=== PATIENT | female | born 1930 | race Caucasian/White ===

== ENCOUNTER 2016-06-26 19:27 | Emergency (ER) | payer BC ==
[~2016-06-26 19:27] MED LIST: ASCA500 PO; CLCC1250 PO; ENOX30IN4 SQ; ESCI1TAB18 PO; FRRS300 PO; FRS/40 PO; LISI5TAB3 PO; METO50TA7 PO; OXYC-57 PO; VEGETABLE LAXATIVE PO; [UNRECOGNIZED DRUG - CODE] PO
[2016-06-26 19:31] VITALS: TEMP 36.5; Ht 170.2 cm
[2016-06-26] MEDS ORDERED: OXYCODONE HCL IR 5 MG TAB (IMMEDIATE RELEASE) PO STA (22:12)
--- NOTE | 2016-06-26 22:14 | EMERGENCY ROOM VISIT NOTE ---
History Report prepared by Amelia: Sukhdeep Butler Under the Supervision of: Dr. Jamir Queen M.D. First contact with patient: 21:52 Chief Complaint: LEG PAIN,LEG INJURY Stated Complaint: PAIN ON R LEG History of Present Illness The patient is an 86 year old female who presents to the Emergency Room with complaints of recurrent right upper leg pain for the past two weeks, which has been worse over the past 48 hours. The patient does not currently have any pain. She notes that the leg is very painful with movement. The pain is cramping in nature. The patient normally ambulates with a walker, but has been having trouble ambulating secondary to pain recently. The patient had a fall last week but did not sustain any injuries. The patient denies chest pain or shortness of breath. The patient has a catheter in place chronically secondary to back surgery performed by Dr. Lamar years ago s/p fall. The patient's daughter notes that she has chronic venous stasis changes. The patient denies any history of blood clots and is not on any blood thinners. The patient lives alone but is checked on by caregivers. Source of History: patient, family Onset: two weeks Position: leg (right) Quality: cramping Timing: other (recurrent) Modifying Factors (Worsening): movement Associated Symptoms: No SOB, No chest pain Review of Systems See HPI for pertinent positives & negatives. A total of 10 systems reviewed and were otherwise negative. Past Medical & Surgical Surgical Problems: (1) H/O: hysterectomy (2) Hx of cholecystectomy (3) Previous back surgery Old medical records were reviewed. Nurse's notes were reviewed and I agree with. Family History Diabetes mellitus Stroke Social History Smoking Status: Never Smoker Drug Use: none Housing Status: lives alone Occupation Status: retired Current/Historical Medications Scheduled Furosemide (Lasix), 40 MG PO QAM Levothyroxine Sodium (Synthroid), 175 MCG PO QAM Lisinopril (Lisinopril), 5 MG PO QAM Metoprolol Succ (Toprol Xl) (Toprol-Xl), 50 MG PO QPM Senna (Senokot), 2 TAB PO HS Sertraline (Zoloft), 50 MG PO QAM Scheduled PRN Oxycodone Immediate Rel Tab (Roxicodone Ir), 1 TAB PO Q6H PRN for Severe Pain Allergies Coded Allergies: No Known Allergies (Verified , 06/26/16) Physical Exam Vital Signs Date Time Temp Pulse Resp B/P Pulse Ox O2 Delivery O2 Flow Rate FiO2 06/27/16 01:43 70 16 160/86 99 06/27/16 00:02 83 16 158/86 96 Room Air 06/26/16 19:31 36.5 69 20 185/81 96 Room Air Physical Exam General: Non ill appearing older female no acute distress. HEENT: Normal cephalic atraumatic. Pupils are equal round and reactive to light. Sclera Anicteric. Extraocular movements are intact. Oropharynx is pink with moist mucous membranes. No swelling of the mouth lips or tongue. Neck: Supple with a midline trachea. No meningeal signs or stiffness, no JVD or bruits. No Stridor. Chest: Clear to auscultation bilaterally. No wheezes or rhonchi. No increased work of breathing. Heart: regular rate and rhythm. Abdomen: Soft nontender, nondistended without rebound guarding or rigidity. Extremities: No cyanosis clubbing or edema. No calf tenderness or assymetry. Right leg has some pain with flexion of the hip. Spine/Back. Non tender to palpation. No CVA tenderness Skin: Good turgor without rashes. Neurologic exam: Cranial nerves two through 12 are intact. Motor and sensation are intact and symmetrical throughout. : Rivera catheter in place. Medical Decision & Procedures ER Provider Diagnostic Interpretation: Radiology results as stated below per my review and radiologist interpretation: CT PELVIS: There is asymmetric thickening and edema about the right iliopsoas musculature. This is nonspecific. If there has been trauma, it may represent strain. There is high attenuation at the distal portion of the iliopsoas which may represent intramuscular hematoma, or senescent calcification. A minute cortical avulsion is considered less likely, but not entirely ruled out. If there has been no recent trauma, then these findings could be related to underlying infection. Otherwise, no evidence for acute fracture or dislocation. If there is persistent high clinical concern for occult fracture, MRI is the modality of choice. If there is concern for underlying infection of the right iliopsoas musculature, MRI with contrast may be more useful. Concentric wall thickening of the rectosigmoid region, could be due to nonspecific proctitis. Wall thickening of the urinary bladder with surround edema. Suspicious for cystitis or an infiltrative process.Correlate with urinalysis. Radiologist: Carlos Hdz MD US VENOUS RIGHT LOWER EXTREMITY: No definite sonographic evidence for DVT. Limited visualization secondary to body habitus and nonspecific soft tissue edema. Radiologist: Carlos Hdz Laboratory Results 06/26/16 23:17 Red Blood Count 4.09, Mean Corpuscular Volume 93.6, Mean Corpuscular Hemoglobin 32.0, Mean Corpuscular Hemoglobin Concent 34.2, Mean Platelet Volume 9.2, Neutrophils (%) (Auto) 65.2, Lymphocytes (%) (Auto) 23.0, Monocytes (%) (Auto) 9.3, Eosinophils (%) (Auto) 2.0, Basophils (%) (Auto) 0.3, Neutrophils # (Auto) 4.29, Lymphocytes # (Auto) 1.51, Monocytes # (Auto) 0.61, Eosinophils # (Auto) 0.13, Basophils # (Auto) 0.02 06/26/16 23:17 Test 06/26/16 23:17 White Blood Count 6.57 K/uL (4.8-10.8) Red Blood Count 4.09 M/uL (4.2-5.4) Hemoglobin 13.1 g/dL (12.0-16.0) Hematocrit 38.3 % (37-47) Mean Corpuscular Volume 93.6 fL (80-100) Mean Corpuscular Hemoglobin 32.0 pg (25-34) Mean Corpuscular Hemoglobin Concent 34.2 g/dl (32-36) Platelet Count 194 K/uL (130-400) Mean Platelet Volume 9.2 fL (7.4-10.4) Neutrophils (%) (Auto) 65.2 % Lymphocytes (%) (Auto) 23.0 % Monocytes (%) (Auto) 9.3 % Eosinophils (%) (Auto) 2.0 % Basophils (%) (Auto) 0.3 % Neutrophils # (Auto) 4.29 K/uL (1.4-6.5) Lymphocytes # (Auto) 1.51 K/uL (1.2-3.4) Monocytes # (Auto) 0.61 K/uL (0.11-0.59) Eosinophils # (Auto) 0.13 K/uL (0-0.5) Basophils # (Auto) 0.02 K/uL (0-0.2) RDW Standard Deviation 47.7 fL (36.4-46.3) RDW Coefficient of Variation 14.0 % (11.5-14.5) Immature Granulocyte % (Auto) 0.2 % Immature Granulocyte # (Auto) 0.01 K/uL (0.00-0.02) Prothrombin Time 11.0 SECONDS (9.0-12.0) Prothromb Time International Ratio 1.0 (0.9-1.1) Activated Partial Thromboplast Time 25.8 SECONDS (21.0-31.0) Partial Thromboplastin Ratio 1.0 Anion Gap 11.0 mmol/L (3-11) Estimated GFR () 92.2 Estimated GFR (Non- 79.6 BUN/Creatinine Ratio 12.3 (10-20) Calcium Level 8.7 mg/dl (8.5-10.1) Laboratory studies as stated above per my review. Medications Administered Medications (Trade) Dose Ordered Sig/Noé Route Start Time Stop Time Status Last Admin Dose Admin Oxycodone HCl (Roxicodone Immediate Rel Tab) 5 mg NOW STAT PO 06/26/16 22:12 06/26/16 22:15 DC 06/26/16 22:21 5 MG ED Course 2200: Past medical records reviewed. The patient was evaluated in room B10, and a complete history and physical examination were performed. 2212: Oxycodone 5 mg IR PO. 0109: Reassessed the patient. She would like to go home. She verbalized understanding and agreement of the treatment plan. The patient is ready for discharge. 0130: Oxycodone 5 mg IR PO homepack. Medical Decision Differential diagnosis includes DVT, musculoskeletal pain, infection, electrolyte or metabolic abnormality. This patient comes in as described above. she's been having right leg and pelvis pain. She have a minor injury. She has no numbness or weakness. IV access established blood work was obtained. She has no significant electrolyte or metabolic abnormalities. She has nothing to suggest sepsis or infection. she has a indwelling Rivera catheter and has no symptoms to suggest infection. I did a CAT scan of her pelvis and there is no definite fracture. She does likely have a sprain and hematoma along the iliopsoas muscle. She seemed to do well with the OxyIR by mouth here that I gave her she's had this before. She does have a lot of help at home. I told her not to get out of bed in the she has assistance. Use primarily ibuprofen for breakthrough pain she can use OxyIRy 5 mg 1 pill every 6 hours. She was warned that this could make her drowsy and do not take before drinking, driving, working. She should return if : numbness or weakness, change in bowel or bladder function, worsening of symptoms, any new problems concerns. She is happy with plan and discharged home. Impression Primary Impression: Strain of iliopsoas muscle Additional Impressions: Hematoma of muscle Leg pain, right Scribe Attestation The scribe's documentation has been prepared under my direction and personally reviewed by me in its entirety. I confirm that the note above accurately reflects all work, treatment, procedures, and medical decision making performed by me. Departure Information Dispostion Home / Self-Care Prescriptions Oxycodone Immediate Rel Tab (ROXICODONE IR) 5 Mg Tab 1 TAB PO Q6H Y for Severe Pain, #14 TAB Prov: Jamir Queen M.D. 06/27/16 Referrals Christen Hicks C.R.N.P (PCP) Forms HOME CARE DOCUMENTATION FORM, IMPORTANT VISIT INFORMATION Patient Instructions My [facility] Additional Instructions Rest. Be careful and getting up and down. Get up and down with assistance only. Use ibuprofen 400 mg every 6 hours, take with food For more severe pain ,may use OxyIR one pill every 6 hours as needed OxyIR is a narcotic and do not take with any other narcotic or sedating medications. Be careful getting up and down after taking this medicine and getting up and down with assistance only Return if: Increasing pain, worsening of symptoms, any new problems or concerns. Problem Qualifiers
[2016-06-26] MEDS ORDERED: SENN-61 PO (22:57)
[2016-06-26] MEDS ORDERED: LSN5 PO (22:57)
[2016-06-26] MEDS ORDERED: LEVO175T PO (22:57)
[2016-06-26] MEDS ORDERED: SERT50TA PO (22:57)
[2016-06-26 23:32] LABS: BASO % 0.3 %; BASO ABS # 0.02 K/uL (0-0.2); COMPLETE YES; HEMATOCRIT 38.3 % (37-47); IG% 0.2 %; LYMPH ABS # 1.51 K/uL (1.2-3.4); MEAN CELL VOLUME 93.6 fL (80-100); MEAN CORPUSCULAR HGB CONC 34.2 g/dl (32-36); MEAN PLATELET VOLUME 9.2 fL (7.4-10.4); MONO % 9.3 %; NEUT % 65.2 %; PLATELET COUNT 194 K/uL (130-400); RED BLOOD COUNT 4.09 M/uL (4.2-5.4); WHITE BLOOD COUNT 6.57 K/uL (4.8-10.8)
[2016-06-26 23:43] LABS: BLOOD UREA NITROGEN 8 mg/dl (7-18); BUN/CREATININE RATIO 12.3 (10-20); CALCIUM 8.7 mg/dl (8.5-10.1); CARBON DIOXIDE 28 mmol/L (21-32); CHLORIDE 103 mmol/L (98-107); CREATININE 0.67 mg/dl (0.60-1.20); GLUCOSE 97 mg/dl (70-99); SODIUM 142 mmol/L (136-145)
[2016-06-27] MEDS ORDERED: OXYC1TAB3 PO (01:20)
[2016-06-27] MEDS ORDERED: OXYCODONE IR HOME PACK PO ONE (01:30)
[2016-06-27 01:43] VITALS: BP 160/86; PULSE 70; O2SAT 99
--- NOTE | 2016-06-27 06:26 | DIAGNOSTIC IMAGING REPORT ---
CT PELVIS NO IV/ORAL CONT (CT) CT DOSE: 1150.77 mGy.cm CLINICAL HISTORY: Right pelvic and leg pain. Possible fracture. TECHNIQUE: Helical images were acquired in the transverse plane. No intravenous or oral contrast was administered. COMPARISON STUDY: None FINDINGS: There is an indwelling Rivera catheter present. There is air within the bladder likely iatrogenic. There is mild bladder wall thickening and perivesical stranding. The uterus is surgically absent. There is no acute diverticulitis. There is mild rectosigmoid wall thickening which may be secondary to a nondistended segment. There is L3-4, L4-5, and L5-S1 spinal stenosis. There is a calcified right pelvic sidewall lymph nodes. There is no acute diverticulitis. No acute fractures are visualized. There are advanced degenerative changes present within the lower lumbar spine. There is mild enlargement and increased density involving the inferior aspect of the right iliopsoas. The findings are suggestive of a muscle strain/partial tear. There is a small calcific density within the muscle which could represent an age-indeterminate avulsion or myositis ossificans.. IMPRESSION: 1. No acute fractures identified 2. Mild bladder wall thickening with surrounding perivesical stranding. Clinical correlation regards to a urinary tract infection is recommended 3. Mild enlargement and increased density of the right iliopsoas. This is likely secondary to a muscle strain/partial tear. Age-indeterminate avulsion cannot be excluded. Clinical correlation in this regard is advocated Electronically signed by: Burt Galarza M.D. 06/27/2016 6:25 AM Dictated Date/Time: 06/27/2016 6:14 AM
--- NOTE | 2016-06-27 06:48 | DIAGNOSTIC IMAGING REPORT ---
ULTRASOUND RIGHT VENOUS DOPP LOWER EXT UNILAT CLINICAL HISTORY: Right leg pain. COMPARISON STUDY: No previous studies for comparison. FINDINGS: Real-time and color flow Doppler imaging were performed. Flow was seen within the femoral, popliteal and calf veins with no intraluminal thrombus demonstrated. The saphenous vein is patent. There is right lower extremity edema. The study was mildly limited from a technical standpoint due to the patient's body habitus. IMPRESSION: No evidence of right lower extremity DVT. Electronically signed by: Burt Galarza M.D. 06/27/2016 6:46 AM Dictated Date/Time: 06/27/2016 6:45 AM
== END 2016-06-27 01:43 | disposition home or self-care (01) ==
LOC: C.EDB 19:28
DX: S76.811A Strain of other specified muscles, fascia and tendons at thigh level, right thigh, initial encounter (principal); X58.XXXA Exposure to other specified factors, initial encounter; Z79.899 Other long term (current) drug therapy

== ENCOUNTER → 2016-11-06 | Outpatient (CLI) | payer BC ==
[~2016-11-06] MED LIST changes: -ASCA500 PO; -CLCC1250 PO; -ENOX30IN4 SQ; -ESCI1TAB18 PO; -FRRS300 PO; +LEVO175T PO; -LISI5TAB3 PO; +LSN5 PO; -OXYC-57 PO; +OXYC1TAB3 PO; +SENN-61 PO; +SERT50TA PO; -VEGETABLE LAXATIVE PO; -[UNRECOGNIZED DRUG - CODE] PO
[2016-11-06 17:43] LABS: ALT/SGPT 12 U/L (12-78); AST/SGOT 15 U/L (15-37); BLOOD UREA NITROGEN 11 mg/dl (7-18); BUN/CREATININE RATIO 15.7 (10-20); CALCIUM 8.9 mg/dl (8.5-10.1); CARBON DIOXIDE 28 mmol/L (21-32); CHLORIDE 106 mmol/L (98-107); CREATININE 0.67 mg/dl (0.60-1.20); GLUCOSE 91 mg/dl (70-99); SODIUM 139 mmol/L (136-145)
[2016-11-06 17:53] LABS: ALB/GLOB RATIO 0.7 (0.9-2); ALKALINE PHOSPHATASE 92 U/L (45-117)
[2016-11-07 07:36] LABS: ESTIMATED AVERAGE GLUCOSE 105 mg/dl; HA1C FLAG Normal (Normal)
== END | disposition home or self-care (01) ==
LOC: C.LABPVFM 15:11
PROVIDERS: ATTEND Nurse Practitioner
DX: E03.9 Hypothyroidism, unspecified (principal); I10 Essential (primary) hypertension; R73.01 Impaired fasting glucose

== ENCOUNTER → 2017-02-16 | Outpatient (CLI) | payer BC ==
[~2017-02-16] MED LIST changes: -OXYC1TAB3 PO
== END | disposition home or self-care (01) ==
LOC: C.LABSPEC 13:09
PROVIDERS: ATTEND Nurse Practitioner Family
DX: N31.9 Neuromuscular dysfunction of bladder, unspecified (principal); R33.9 Retention of urine, unspecified

== ENCOUNTER → 2017-09-08 | Outpatient (CLI) | payer BC ==
[~2017-09-08] MED LIST changes: +CEPH500C2 PO; +CIPR1TAB11 PO; -METO50TA7 PO; +METO50TA8 PO
== END | disposition home or self-care (01) ==
LOC: C.LABSPEC 12:55
PROVIDERS: ATTEND Emergency Medicine
DX: S81.801D Unspecified open wound, right lower leg, subsequent encounter (principal); X58.XXXD Exposure to other specified factors, subsequent encounter

== ENCOUNTER 2017-09-19 13:45 | Inpatient (IN) | payer BC, OTHER ==
[~2017-09-19] VITALS: Ht 165.1 cm; Wt 100.0 kg
[~2017-09-19 13:45] MED LIST changes: -CEPH500C2 PO; -CIPR1TAB11 PO; -LEVO175T PO; -LSN5 PO; -METO50TA8 PO; -SENN-61 PO; -SERT50TA PO
[2017-09-19] MEDS ORDERED: SODIUM CHLORIDE 0.9% 1000ML 1,000 ML IV STA (14:02)
--- NOTE | 2017-09-19 14:20 | DIAGNOSTIC IMAGING REPORT ---
CHEST ONE VIEW PORTABLE CLINICAL HISTORY: Acute change in mental status. Fever. COMPARISON STUDY: 11/30/2007 FINDINGS: The cardiac and mediastinal contours are normal. There is no evidence of focal pulmonary consolidation. There is no evidence of failure. No pleural effusions are visualized.[ There are postsurgical changes of thoracoabdominal spinal rodding. IMPRESSION: No active disease in the chest. Electronically signed by: Burt Galarza M.D. 09/19/2017 2:19 PM Dictated Date/Time: 09/19/2017 2:18 PM
[2017-09-19 14:36] LABS: BASO % 0.2 %; BASO ABS # 0.01 K/uL (0-0.2); EOS % 0.3 %; EOS ABS # 0.02 K/uL (0-0.5); HEMATOCRIT 32.7 % (37-47); IG# 0.01 K/uL (0.00-0.02); LYMPH % 9.9 %; LYMPH ABS # 0.66 K/uL (1.2-3.4); MEAN CELL VOLUME 96.2 fL (80-100); MEAN CORPUSCULAR HEMOGLOBIN 32.4 pg (25-34); MEAN CORPUSCULAR HGB CONC 33.6 g/dl (32-36); MEAN PLATELET VOLUME 8.4 fL (7.4-10.4); MONO % 9.3 %; MONO ABS # 0.62 K/uL (0.11-0.59); NEUT % 80.1 %; NEUT ABS # 5.33 K/uL (1.4-6.5); PLATELET COUNT 124 K/uL (130-400); RED CELL DISTRIBUTION WIDTH SD 49.6 fL (36.4-46.3); WHITE BLOOD COUNT 6.65 K/uL (4.8-10.8)
[2017-09-19 14:49] LABS: PTT PATIENT 29.6 SECONDS (21.0-31.0)
[2017-09-19 15:01] LABS: ALBUMIN 2.6 gm/dl (3.4-5.0); ALKALINE PHOSPHATASE 84 U/L (45-117); ALT/SGPT 12 U/L (12-78); AST/SGOT 17 U/L (15-37); BLOOD UREA NITROGEN 15 mg/dl (7-18); CALCIUM 8.2 mg/dl (8.5-10.1); CARBON DIOXIDE 28 mmol/L (21-32); CREATININE 0.92 mg/dl (0.60-1.20); GLUCOSE 107 mg/dl (70-99); LIPASE 69 U/L (73-393); POTASSIUM 3.9 mmol/L (3.5-5.1); SODIUM 136 mmol/L (136-145); TOTAL PROTEIN 6.6 gm/dl (6.4-8.2)
--- NOTE | 2017-09-19 15:12 | DIAGNOSTIC IMAGING REPORT ---
LUMBAR SPINE 3 VIEWS HISTORY: weak legs COMPARISON: None. FINDINGS: There is no fracture. Mild levoscoliosis. There is posterior decompression and fusion from T11 through L3 with pedicle screws and rods. The hardware appears intact. 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 Severe disc space narrowing at L3-L4, L4-5, and L5-S1. The L3-L4 and L4-L5 disc spaces appear to be partially fused. No subluxation. The bones are osteopenic. Prior cholecystectomy. Moderate facet osteoarthritis within the bilateral sacroiliac joints. IMPRESSION: 1. No acute fractures within the lumbar spine. 2. Advanced degenerative changes within the lower lumbar spine described above. 3. T11-L3 posterior decompression and fusion. The hardware is intact. Electronically signed by: Nixon Regan M.D. 09/19/2017 3:11 PM Dictated Date/Time: 09/19/2017 3:08 PM
[2017-09-19] MEDS ORDERED: DTR/5 PO (15:31)
[2017-09-19] MEDS ORDERED: MELO7.5T6 PO (15:31)
[2017-09-19] MEDS ORDERED: CEFTRIAXONE SOD INJ 1 GM ADDVIAL IV STA (15:38)
[2017-09-19] MEDS ORDERED: CEFEPIME IV 1,000 MG in DEXTROSE 5% 100ML 100 ML IV STA (15:40)
[2017-09-19] MEDS ORDERED: ACETAMINOPHEN 325 MG TAB PO PRN (16:15)
[2017-09-19] MEDS ORDERED: ONDANSETRON INJ 2 MG/ML 2 ML VIAL IV PRN (16:15)
[2017-09-19] MEDS ORDERED: ALUMINUM/MAGNESIUM/SIMETH (MAALOX MAX) 30 ML UDC PO PRN (16:15)
[2017-09-19] MEDS ORDERED: ZOLPIDEM TARTRATE 5 MG TAB PO PRN (16:15)
[2017-09-19] MEDS ORDERED: POLYETHYLENE (MIRALAX) 17 GM PACK PO PRN (16:15)
[2017-09-19] MEDS ORDERED: MAGNESIUM HYDROXIDE SUSP 30 ML UDC PO PRN (16:15)
[2017-09-19 16:36] VITALS: BMI 36.7
--- NOTE | 2017-09-19 17:27 | Progress Note ---
Progress Note Date of Service September 19, 2017. Progress Note PA Physician Supervision Note: I interviewed and examined the patient. Discussed with Victor Manuel Escobar PAC and agree with findings and plan as documented in the note. Any exceptions or clarifications are listed here: None This patient is brought in by her family after having difficulty getting around. She typically would walk around with a walker. She does have a chronic indwelling Rivera catheter which was recently changed. Although she has had urinary tract infections in the past that caused similar symptoms she has had no dysuria which is usually a symptom of it. She is chronically bothered by hemorrhoids and she has an open wound on her right lower leg which being his is being attended to by the wound care center. She is changes of chronic venous stasis of bilateral lower extremities Vital signs and laboratories are stable with exception of an abnormal urinalysis she has had cultures taken in the ER was given Rocephin Physical exam she is awake alert appropriate her cardiac exam is regular her lungs are clear her throat is without evidence of pharyngitis her abdomen is normoactive bowel sounds soft nontender including no CVA angle tenderness or suprapubic tenderness her lower extremities have dusky venous stasis changes there is a $0.50 size opening of the right lower extremity and anterior part of the distal third which is beefy erythematous and does not look actively infected neurologically she is awake and appropriate she is however generally globally weak Patient is here with metabolic encephalopathy with weakness with concern for urinary tract infection present on admission Patient will be brought and given intravenous levofloxacin and have physical therapy occupational therapy consults wound care will continue to see the patient There is some concern that the patient's had a tremor which interferes with her activities of daily living if this continues to be an issue perhaps neurology consultation could be undertaken. The family wishes for rehabilitation evaluation for subacute rehab or acute rehab whenever she qualifies for Documented By: Virgil Lambert
--- NOTE | 2017-09-19 17:59 | EMERGENCY ROOM VISIT NOTE ---
History Report prepared by Amelia: Isabell Ram Under the Supervision of: Dr. Paul Cortez D.O. First contact with patient: 13:52 Chief Complaint: FEVER Stated Complaint: FEVER,HAVING TROUBLE SITTING UP History of Present Illness The patient is a 87 year old female who presents to the Emergency Room with complaints of worsening weakness for the past 2 days. She is accompanied by several family members. Her family reports she has been increasingly weak and has had difficulty sitting up recently, which is unlike her. She normally ambulates with a walker, and her family last saw her use the walker to ambulate last weekend. The patient has an indwelling Rivera catheter that was last changed about 4 days ago. She has been running a low grade fever of 99 degrees for the past day. Pt denies headache, change in vision, chest pain, shortness of breath, back pain, nausea, vomiting, diarrhea, pain with urination, and melena. 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 A total of 10 systems reviewed and were otherwise negative. Past Medical & Surgical Medical Problems: (1) Generalized weakness (2) UTI (urinary tract infection) Surgical Problems: (1) H/O: hysterectomy (2) Hx of cholecystectomy (3) Previous back surgery Family History Diabetes mellitus Stroke Social History Smoking Status: Never Smoker Alcohol Use: none Drug Use: none Marital Status: Housing Status: lives alone Occupation Status: retired Current/Historical Medications Scheduled Furosemide (Lasix), 40 MG PO QAM Levothyroxine Sodium (Synthroid), 175 MCG PO QAM Lisinopril (Lisinopril), 5 MG PO QAM Metoprolol Succ (Toprol Xl) (Toprol-Xl), 50 MG PO QPM Senna (Senokot), 17.2 MG PO HS Sertraline (Zoloft), 50 MG PO QAM Scheduled PRN Meloxicam (Mobic), 7.5 MG PO DAILY PRN for Pain Oxybutynin Chloride (Ditropan), 5 MG PO TID PRN for Bladder Spasm Allergies Coded Allergies: No Known Allergies (Verified , 2/24/17) Physical Exam Vital Signs Date Time Temp Pulse Resp B/P (MAP) Pulse Ox O2 Delivery O2 Flow Rate FiO2 09/19/17 16:36 Room Air 09/19/17 16:30 66 20 132/58 98 Room Air 09/19/17 15:20 68 20 163/66 98 Room Air 09/19/17 13:50 36.8 77 20 106/56 96 Room Air Physical Exam GENERAL: Sitting up in bed, alert, unable to stand or transfer out of chair, well nourished, no distress, non-toxic EYE EXAM: normal conjunctiva. PERRL and EOM's intact. OROPHARYNX: no exudate, no erythema, lips, buccal mucosa, and tongue normal and mucous membranes are moist NECK: supple, no nuchal rigidity, no adenopathy, non-tender LUNGS: Course breath sounds bilaterally. Normal chest wall mechanics HEART: no murmurs, S1 normal and S2 normal ABDOMEN: abdomen soft, non-tender, normo-active bowel sounds, no masses, no rebound or guarding. BACK: Back is symmetrical on inspection and there is no deformity, no midline tenderness, no CVA tenderness. SKIN: no rashes and no bruising, 3 cm circular erythematous lesion to the right mid ford, no discharge, fluctuance or purulence. UPPER EXTREMITIES: upper extremities are grossly normal. LOWER EXTREMITIES: No pitting edema. Minimal bilateral flexion of the hips, unable to lift against gravity, plantar, dorsiflexion and EHL 5/5, DP 2/4, gross sensation intact. NEURO EXAM: Patient is awake, alert and oriented to person, place, year but not month. Cranial nerves II-XII intact, normal speech. Medical Decision & Procedures ER Provider Diagnostic Interpretation: Radiology results as stated below per my review and the radiologist's interpretation: LUMBAR SPINE 3 VIEWS HISTORY: weak legs COMPARISON: None. FINDINGS: There is no fracture. Mild levoscoliosis. There is posterior decompression and fusion from T11 through L3 with pedicle screws and rods. The hardware appears intact. 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 Severe disc space narrowing at L3-L4, L4-5, and L5-S1. The L3-L4 and L4-L5 disc spaces appear to be partially fused. No subluxation. The bones are osteopenic. Prior cholecystectomy. Moderate facet osteoarthritis within the bilateral sacroiliac joints. IMPRESSION: 1. No acute fractures within the lumbar spine. 2. Advanced degenerative changes within the lower lumbar spine described above. 3. T11-L3 posterior decompression and fusion. The hardware is intact. Electronically signed by: Nixon Regan M.D. 09/19/2017 3:11 PM CHEST ONE VIEW PORTABLE CLINICAL HISTORY: Acute change in mental status. Fever. COMPARISON STUDY: 11/30/2007 FINDINGS: The cardiac and mediastinal contours are normal. There is no evidence of focal pulmonary consolidation. There is no evidence of failure. No pleural effusions are visualized. There are postsurgical changes of thoracoabdominal spinal rodding. IMPRESSION: No active disease in the chest. Electronically signed by: Burt Galarza M.D. 09/19/2017 2:19 PM Laboratory Results 09/19/17 14:30 Red Blood Count 3.40, Mean Corpuscular Volume 96.2, Mean Corpuscular Hemoglobin 32.4, Mean Corpuscular Hemoglobin Concent 33.6, Mean Platelet Volume 8.4, Neutrophils (%) (Auto) 80.1, Lymphocytes (%) (Auto) 9.9, Monocytes (%) (Auto) 9.3, Eosinophils (%) (Auto) 0.3, Basophils (%) (Auto) 0.2, Neutrophils # (Auto) 5.33, Lymphocytes # (Auto) 0.66, Monocytes # (Auto) 0.62, Eosinophils # (Auto) 0.02, Basophils # (Auto) 0.01 09/19/17 14:30 Test 09/19/17 14:00 09/19/17 14:30 Urine Color YELLOW Urine Appearance CLEAR (CLEAR) Urine pH 7.5 (4.5-7.5) Urine Specific [place] 1.008 (1.000-1.030) Urine Protein NEG (NEG) Urine Glucose (UA) NEG (NEG) Urine Ketones NEG (NEG) Urine Occult Blood NEG (NEG) Urine Nitrite NEG (NEG) Urine Bilirubin NEG (NEG) Urine Urobilinogen NEG (NEG) Urine Leukocyte Esterase MODERATE (NEG) Urine WBC (Auto) 5-10 /hpf (0-5) Urine RBC (Auto) 0-4 /hpf (0-4) Urine Hyaline Casts (Auto) 1-5 /lpf (0-5) Urine Epithelial Cells (Auto) >30 /lpf (0-5) Urine Bacteria (Auto) 1+ (NEG) Urine Renal Epithelial Cells 5-10 /lpf (0-5) White Blood Count 6.65 K/uL (4.8-10.8) Red Blood Count 3.40 M/uL (4.2-5.4) Hemoglobin 11.0 g/dL (12.0-16.0) Hematocrit 32.7 % (37-47) Mean Corpuscular Volume 96.2 fL (80-100) Mean Corpuscular Hemoglobin 32.4 pg (25-34) Mean Corpuscular Hemoglobin Concent 33.6 g/dl (32-36) Platelet Count 124 K/uL (130-400) Mean Platelet Volume 8.4 fL (7.4-10.4) Neutrophils (%) (Auto) 80.1 % Lymphocytes (%) (Auto) 9.9 % Monocytes (%) (Auto) 9.3 % Eosinophils (%) (Auto) 0.3 % Basophils (%) (Auto) 0.2 % Neutrophils # (Auto) 5.33 K/uL (1.4-6.5) Lymphocytes # (Auto) 0.66 K/uL (1.2-3.4) Monocytes # (Auto) 0.62 K/uL (0.11-0.59) Eosinophils # (Auto) 0.02 K/uL (0-0.5) Basophils # (Auto) 0.01 K/uL (0-0.2) RDW Standard Deviation 49.6 fL (36.4-46.3) RDW Coefficient of Variation 14.0 % (11.5-14.5) Immature Granulocyte % (Auto) 0.2 % Immature Granulocyte # (Auto) 0.01 K/uL (0.00-0.02) Prothrombin Time 10.3 SECONDS (9.0-12.0) Prothromb Time International Ratio 1.0 (0.9-1.1) Activated Partial Thromboplast Time 29.6 SECONDS (21.0-31.0) Partial Thromboplastin Ratio 1.1 Anion Gap 5.0 mmol/L (3-11) Est Creatinine Clear Calc Drug Dose 50.5 ml/min Estimated GFR () 64.9 Estimated GFR (Non- 56.0 BUN/Creatinine Ratio 16.7 (10-20) Lactic Acid Level 0.9 mmol/L (0.4-2.0) Calcium Level 8.2 mg/dl (8.5-10.1) Magnesium Level 2.0 mg/dl (1.8-2.4) Total Bilirubin 0.8 mg/dl (0.2-1) Direct Bilirubin 0.2 mg/dl (0-0.2) Aspartate Amino Transf (AST/SGOT) 17 U/L (15-37) Alanine Aminotransferase (ALT/SGPT) 12 U/L (12-78) Alkaline Phosphatase 84 U/L (45-117) Troponin I < 0.015 ng/ml (0-0.045) Total Protein 6.6 gm/dl (6.4-8.2) Albumin 2.6 gm/dl (3.4-5.0) Lipase 69 U/L (73-393) Laboratory results per my review. Medications Administered Medications (Trade) Dose Ordered Sig/Noé Route Start Time Stop Time Status Last Admin Dose Admin Sodium Chloride 1,000 ml @ 999 mls/hr Q1H1M STAT IV 09/19/17 14:02 09/19/17 15:02 DC 09/19/17 14:02 999 MLS/HR Cefepime HCl 1000 mg/Dextrose 111 ml @ 200 mls/hr NOW STAT IV 09/19/17 15:40 09/19/17 16:13 DC 09/19/17 16:04 200 MLS/HR ECG Per My Interpretation Indication: weakness Rate (beats per minute): 81 Rhythm: sinus rhythm Findings: 1st degree AV block, Q waves (Inferior), RBBB ED Course ED COURSE: Vital signs were reviewed and showed normal vital signs. The patients medical record was reviewed The above diagnostic studies were performed and reviewed. ED treatments and interventions as stated above. 1354: The patient was evaluated in room B4. A complete history and physical examination was performed. 1402: NSS 1000 ml @ 999 mls/hr IV. 1538: Rocephin 1 gm IV. 1540: Cefepime HCl 1000 mg/Dextrose 111 ml @ 200 mls/hr IV. 1542: I discussed the patients case with Victor Manuel Escobar PA-C, [facility] Hospitalist. The patient will be further evaluated. 1550: Upon reevaluation, the patient is resting comfortably. I discussed my findings with the patient and she understands and agrees with the treatment plan. Based on the patients age, coexisting illnesses, exam and lab findings the decision to treat as an inpatient was made. The patient remained stable while under my care. The patient will be evaluated for further management. Medical Decision Differential Diagnosis includes but is not limited to dehydration, stroke, anemia, hypoglycemia, hyponatremia, hypernatremia, urinary tract infection, pneumonia, bronchitis, sepsis, gastroenteritis, additional abdominal pathology, metabolic abnormalities and infections. Patient is an 87-year-old female that presents to ER for weakness. She normally ambulance with a walker. Over the past 2 days she has been unable to get up or move around as she has felt so weak and run down. She has no other real medical complaints. She denies any back pain. Chronic Rivera since early 1999. CBC shows no significant leukocytosis or anemia. BMP along with LFTs, lactic acid, bilirubin and troponin were negative. Lipase is normal. UA with lites, leuks and bacteria. There were epithelial cells present as she has a chronic indwelling Rivera. Patient was covered with cefepime as she does have multiple previous urine cultures I favor this was reasonable start as a covered her Pseudomonas and E. coli previously. She has good plantar and dorsiflexion. Sensations intact. I do not believe that she has cauda equina and she has no back pain at this time. Patient was bedside and given a dose of IV antibiotics. She was also given fluids. Family was updated at bedside and they were unable to take her home and consequently she was admitted to internal medicine for further workup. Medication Reconcilliation Current Medication List: was personally reviewed by me Blood Pressure Screening Patient's blood pressure: Elevated blood pressure Blood pressure disposition: Referred to PCP (The patients blood pressure will be further managed by the inpatient hospital medicine team) Consults Time Called: 1539 Consulting Physician: Victor Manuel Escobar PA-C, [facility] Hospitalist Returned Call: [phone] I discussed the patients case with Victor Manuel Escobar PA-C, [facility] Hospitalist. The patient will be further evaluated. Impression Primary Impression: UTI (urinary tract infection) Additional Impression: Weakness Scribe Attestation The scribe's documentation has been prepared under my direction and personally reviewed by me in its entirety. I confirm that the note above accurately reflects all work, treatment, procedures, and medical decision making performed by me. Departure Information Dispostion Being Evaluated By Hospitalist Referrals No Doctor, Assigned (PCP) Patient Instructions My [facility] Problem Qualifiers Primary Impression: UTI (urinary tract infection) Urinary tract infection type: acute cystitis Hematuria presence: with hematuria Qualified Codes: N30.01 - Acute cystitis with hematuria
[2017-09-19 18:14] VITALS: BP_SYST 153; BP_SYST 176; BP_DIAS 79; PULSE 74; TEMP 36.8; O2SAT 99
[2017-09-19] MEDS ORDERED: HYDROCORTISONE HC 2.5% CRM 30GM TUBE EXT PRN (18:15)
[2017-09-19] MEDS ORDERED: METO50TA8 PO (19:35)
[2017-09-19] MEDS: LEVOFLOXACIN / D5W 500 MG in PREMIXED IN D5W 100 ML IV SCH (20:15)
[2017-09-19] MEDS: OXYBUTYNIN CHLORIDE 5 MG TAB PO SCH (22:03)
[2017-09-19] MEDS: ENOXAPARIN 40 MG/0.4 ML SYR SQ SCH (22:04)
--- NOTE | 2017-09-19 22:14 | HISTORY & PHYSICAL EXAMINATION ---
DATE OF ADMISSION: 09/19/2017 ADMITTING DIAGNOSES: 1. Generalized weakness, ambulatory dysfunction. 2. Urinary tract infection in a patient with chronic indwelling catheter. HISTORY OF PRESENT ILLNESS: Mrs. Hernandez is an 87-year-old white female with a history of longstanding hypertension, hypothyroidism, nonhealing right leg wound (followed by the wound clinic), depression, lumbar spinal stenosis status post lumbar decompression and fusion, osteoarthritis, neurogenic bladder, chronic lymphedema, chronic venous insufficiency, and a history of skin cancer, who was brought to the Emergency Room today by her family due to progressive weakness, fear for falling, and feeling poorly through the weekend. Up until last week, patient was able to help herself stand up from a chair, ambulate with a walker, with enough strength to assist her family in moving to do what she needed to do. Unfortunately, over the past 2-3 days, the patient has become progressively weaker, was unable to stand up on her own, had difficulty with transferring from a wheelchair into a chair, and she has come close to falling several times. The patient does admit she had fear of falling because she feels so weak at this point. In the ER, she was noted to have urine bacteria, urine white blood cells, and urine leukocyte esterase, and she is mildly anemic. Her blood pressure is elevated. The patient thinks that she may have had a fever, but she is not certain of that. She denies any focal weakness, it is just that both legs are more weak than they normally would be. The patient denies any chest pain, heaviness, tightness, pressure, or discomfort. She denies any shortness of breath, cough, sputum production, or any dyspnea on exertion. She denies any orthopnea or PND. She denies any palpitations, syncope, or near syncope. She denies any nausea, vomiting, or diarrhea. She has not had any melena or black looking stools. No hematochezia. She denies any back or flank pain. MEDICATIONS: 1. Meloxicam 7.5 mg daily. 2. Oxybutynin chloride 5 mg 1 tablet 3 times daily as needed for bladder spasms. 3. Sertraline 50 mg daily. 4. Lisinopril 5 mg daily. 5. Toprol-XL 50 mg daily. 6. Lasix 40 mg daily for edema. 7. Levothyroxine 175 mcg daily. 8. Ibuprofen 200 mg 2 tablets daily as needed. 9. Senokot 8.6 mg as needed. ALLERGIES: NKDA. PAST MEDICAL HISTORY: 1. Allergic rhinitis. 2. Osteoarthritis. 3. Lumbar spinal stenosis status post lumbar decompression and fusion complicated by neurogenic bladder, bilateral leg weakness. 4. History of bladder spasms. 5. Hemorrhoids. 6. Longstanding hypertension. 7. Depression. 8. History of frequent falls. 9. Nonhealing ulcer, right lower extremity. 10. Chronic lymphedema. 11. Hypothyroidism. 12. Impaired fasting glucose. 13. Morbid obesity. 14. History of sebaceous cyst. 15. Unsteady gait. 16. History of urinary retention. 17. Chronic venous insufficiency. 18. History of ankle fracture status post ORIF. 19. History of laparoscopic cholecystectomy. 20. Status post hysterectomy. 21. History of prior UTIs. SOCIAL HISTORY: The patient is a lifelong nonsmoker. She is . Lives with her family, several who are in attendance today. Please note that the patient has had prior stays at [facility], and she has also had previous stays at [facility] for rehabilitation purposes. FAMILY HISTORY: Significant for diabetes mellitus, hypertension, and endometrial cancer. PHYSICAL EXAMINATION: VITAL SIGNS: Temperature is 36.8 degrees Celsius, pulse 74 and regular, respiratory rate is 17 and unlabored, blood pressure is 163/66. SpO2 is 99% on room air. GENERAL: Chronically ill-appearing white female in no acute distress. HEENT: Head is atraumatic, normocephalic. EOMs intact. Sclerae are anicteric. Face is symmetric. No perioral cyanosis. Mucous membranes are moist. NECK: Without JVD. Carotid upstrokes +2 bilaterally. CHEST AND LUNGS: Clear to auscultation throughout all lung mckeon. No wheezes, rales, or rhonchi. CARDIOVASCULAR: S1 and S2 are regular without obvious murmur, gallop, or rub. ABDOMINAL EXAM: Bowel sounds present. No masses, organomegaly, or tenderness. CVAs are nontender. EXTREMITIES: Normal radial pulses bilaterally. Bilateral lower extremity edema, which is mostly nonpitting, 3 cm circular erythematous lesion in the right mid ford, dressing intact afterwards. Diminished posterior tibial and dorsalis pedis pulses bilaterally. NEUROLOGIC: The patient is awake, alert and oriented. Answers questions appropriately. Speech is clear. Normal movement in bilateral upper extremities. Diminished strength in bilateral hip flexors, quadriceps, plantarflexion and dorsiflexion. Sensation is grossly intact to light touch. Urinalysis as described above. Urine C and S is pending. LABORATORIES: White blood cell count 6.65. Hemoglobin 11.0 g/dL, hematocrit 32.7%, platelet count is 124,000. Sodium 136 mmol/L, potassium 3.9 mmol/L. BUN is 15 mg/dL, creatinine 0.92 mg/dL. Random glucose 107 mg/dL. Lactic acid level is normal at 0.9. Serum magnesium level 2.0. Lipase is low at 69 units per liter. Troponin I level is immeasurable at less than 0.015 ng/mL. Total bilirubin, direct bilirubin, ALT, AST, and alkaline phosphatase levels are all within normal limits. Lumbar spine x-ray reveals no acute fractures, but advanced degenerative changes within the lower lumbar spine, evidence of prior posterior decompression and fusion from T11 through L3. Hardware is intact. Chest x-ray shows no acute cardiopulmonary processes. ASSESSMENT: 1. Urinary tract infection in a patient with chronic indwelling catheter. 2. Generalized weakness, ambulatory dysfunction, and high risk for falls. 3. Hypertension. 4. History of lumbar spinal stenosis status post decompression and fusion. 5. Neurogenic bladder. 6. Hypothyroidism. 7. Diagnosis, as mentioned above. PLAN: 1. Admit to medical floor to Dr. Lambert's service. 2. Begin empiric levofloxacin 500 mg IV daily. 3. Consult occupational therapy and physical therapy. The patient will most likely need placement in a rehabilitation facility versus correction facility at the time of discharge. 4. Continue usual outpatient medications including Toprol-XL, lisinopril, furosemide, levothyroxine, Zoloft, oxybutynin. 5. Hold meloxicam and ibuprofen for the time being. 6. Continue dressings to right leg wound. She will continue to follow up with the wound clinic regarding this. 7. Begin now Lovenox for deep venous thrombosis prophylaxis. 8. We will continue to closely follow while hospitalized. TAMIKA
[2017-09-19] MEDS ORDERED: LEVO175T PO (22:57)
[2017-09-19] MEDS ORDERED: LSN5 PO (22:57)
[2017-09-19] MEDS ORDERED: SENN-61 PO (22:57)
[2017-09-19] MEDS ORDERED: SERT50TA PO (22:57)
[2017-09-19 23:30] VITALS: BP 168/71; PULSE 77; TEMP 37.8; O2SAT 98
[2017-09-20] MEDS: LEVOTHYROXINE 175 MCG TAB PO SCH (06:05)
[2017-09-20 07:15] VITALS: BP 176/91; PULSE 67; TEMP 36.9; O2SAT 100
[2017-09-20 07:33] VITALS: BP 113/62; PULSE 77; TEMP 37; O2SAT 96
[2017-09-20 08:00] VITALS: O2SAT 96
[2017-09-20] MEDS: METOPROLOL SUCC 50MG EXT REL TAB PO SCH (08:15)
[2017-09-20] MEDS: LISINOPRIL 5 MG TAB PO SCH (08:15)
[2017-09-20] MEDS: SERTRALINE HCL 50 MG TAB PO SCH (08:15)
[2017-09-20] MEDS: FUROSEMIDE 40 MG TAB PO SCH (08:15)
[2017-09-20] MEDS: OXYBUTYNIN CHLORIDE 5 MG TAB PO SCH ×2 (08:15→20:01)
--- NOTE | 2017-09-20 12:04 | Clinical Documentation Query ---
CLINICAL DOCUMENTATION QUERY 87 yo female admitted with UTI and metabolic encephalopathy. Patient has a chronic indwelling mathews catheter. In your clinical opinion is this patient being managed for: ( x ) Indwelling mathews catheter associated UTI, present on admission ( ) Not Agree ( ) Other explanation of clinical findings (No explanation is considered a No Response) ( ) Unable to determine ( ) Need to Discuss (Phone CDS or qliq) (No discussion is considered a No Response) The medical record reflects the following clinical findings, treatment, and risk factors. Clinical Indicators: As above Treatment: Rocephin IV, Maxipime IV Risk Factors: Age, female, chronic mathews catheter, weakness, ambulatory dysfunction Please clarify and document your clinical opinion in the progress notes and discharge summary. Terms such as "probable", "suspected", "likely", "questionable", "possible", or "still to be ruled out" are acceptable. IF IN AGREEMENT, YOU MUST DOCUMENT ABOVE DIAGNOSTIC STATEMENT IN DAILY PROGRESS NOTES AND DISCHARGE SUMMARY. This document is not part of the patient's record. Thank You, Sherley Nixon RN [phone]
[2017-09-20 13:06] VITALS: Ht 165.1 cm; Wt 100.0 kg
[2017-09-20 15:35] VITALS: BP 112/68; PULSE 70; TEMP 36.8; O2SAT 93
[2017-09-20] MEDS: LEVOFLOXACIN / D5W 500 MG in PREMIXED IN D5W 100 ML IV SCH (19:58)
[2017-09-20] MEDS: ENOXAPARIN 40 MG/0.4 ML SYR SQ SCH (20:02)
--- NOTE | 2017-09-20 21:18 | Progress Note ---
Subjective Date of Service: September 20, 2017. Subjective Pt evaluation today including: conversation w/ patient Patient reports feeling better. She currently has no new complaints. Problem List Medical Problems: (1) Hematoma of muscle Status: Acute (2) Strain of iliopsoas muscle Status: Acute (3) Weakness Status: Acute Review of Systems Constitutional: No fever, No chills Eyes: No worsening of vision ENT: No hearing loss Respiratory: No cough Abdomen: No pain Neurologic: No paralysis Psychiatric: No depression symptoms Endo: + fatigue Skin: No rash All Other Systems: Reviewed and Negative Medications Current Inpatient Medications Medications (Trade) Dose Ordered Sig/Noé Route Start Time Stop Time Status Last Admin Dose Admin Enoxaparin Sodium (Lovenox Inj) 40 mg Q24H SQ 09/19/17 21:00 10/19/17 20:59 09/20/17 20:02 40 MG Acetaminophen (Tylenol Tab) 650 mg Q4H PRN PO 09/19/17 16:15 10/19/17 16:14 Al Hydrox/Mg Hydrox/Simethicone (Maalox Max Susp) 15 ml Q4H PRN PO 09/19/17 16:15 10/19/17 16:14 Magnesium Hydroxide (Milk Of Magnesia Susp) 30 ml Q6H PRN PO 09/19/17 16:15 10/19/17 16:14 Polyethylene (Miralax Powder Packet) 17 gm DAILY PRN PO 09/19/17 16:15 10/19/17 16:14 Ondansetron HCl (Zofran Inj) 4 mg Q6H PRN IV 09/19/17 16:15 10/19/17 16:14 Zolpidem Tartrate (Ambien Tab) 5 mg HSZ PRN PO 09/19/17 16:15 10/19/17 16:14 Oxybutynin Chloride (Ditropan Tab) 5 mg BID PO 09/19/17 20:00 10/19/17 20:59 09/20/17 20:01 5 MG Sertraline HCl (Zoloft Tab) 50 mg QAM PO 09/20/17 08:00 10/20/17 08:59 09/20/17 08:15 50 MG Lisinopril (Zestril Tab) 5 mg QAM PO 09/20/17 08:00 10/20/17 08:59 09/20/17 08:15 5 MG Metoprolol Succinate (Toprol Xl Tab) 50 mg QAM PO 09/20/17 08:00 10/20/17 08:59 09/20/17 08:15 50 MG Furosemide (Lasix Tab) 40 mg QAM PO 09/20/17 08:00 10/20/17 08:59 09/20/17 08:15 40 MG Levothyroxine Sodium (Synthroid Tab) 175 mcg DAILYBB PO 09/20/17 06:30 10/20/17 06:59 09/20/17 06:05 175 MCG Levofloxacin 500 mg/Prmx 100 ml @ 100 mls/hr Q24H IV 09/19/17 19:00 09/29/17 18:59 09/20/17 19:58 100 MLS/HR Hydrocortisone (Proctozone Hc 2.5% Crm) 1 appln Q4H PRN EXT 09/19/17 18:15 10/19/17 18:14 Objective Vital Signs Date Time Temp Pulse Resp B/P (MAP) Pulse Ox O2 Delivery O2 Flow Rate FiO2 09/20/17 16:00 Room Air 09/20/17 15:35 36.8 70 18 112/68 (83) 93 Room Air 09/20/17 08:00 96 Room Air 09/20/17 07:33 37.0 77 22 113/62 (79) 96 09/20/17 00:00 Room Air 09/19/17 23:30 37.8 77 18 168/71 (103) 98 Room Air Physical Exam General Appearance: WD/WN, no apparent distress ENT: normal ENT inspection Neck: supple, no adenopathy Respiratory/Chest: chest non-tender, lungs clear, normal breath sounds Cardiovascular: regular rate, rhythm, no JVD Abdomen: normal bowel sounds, non tender, soft Extremities: normal range of motion, non-tender, + pertinent finding ( her lower extremities have dusky venous stasis changes there is a $0.50 size opening of the right lower extremity and anterior part of the distal third which is beefy erythematous and does not look actively infected) Neurologic/Psychiatric: alert Skin: normal color Lymphatic: no adenopathy Assessment and Plan ASSESSMENT: 1. Indwelling mathews catheter associated UTI, present on admission 2. Generalized weakness, ambulatory dysfunction, and high risk for falls. 3. Hypertension. 4. History of lumbar spinal stenosis status post decompression and fusion. 5. Neurogenic bladder. 6. Hypothyroidism. 7. Diagnosis, as mentioned above. PLAN: 1. Admit to medical floor to Dr. Lambert's service. 2. Begin empiric levofloxacin 500 mg IV daily. Awaiting urine cultures. Gram negative bacilli 3. Consult occupational therapy and physical therapy. will need SNF for discharge for rehab 4. Continue usual outpatient medications including Toprol-XL, lisinopril, furosemide, levothyroxine, Zoloft, oxybutynin. 5. Hold meloxicam and ibuprofen for the time being. 6. Continue dressings to right leg wound. She will continue to follow up with the wound clinic regarding this. 7. Begin now Lovenox for deep venous thrombosis prophylaxis. 8. We will continue to closely follow while hospitalized Spent 37 minutes in the management of this case: this also included interviewing , chart review, and examination of patient.
[2017-09-20 23:43] VITALS: BP 153/78; PULSE 73; TEMP 36.8; O2SAT 99
[2017-09-21] MEDS: LEVOTHYROXINE 175 MCG TAB PO SCH (06:01)
[2017-09-21 07:14] VITALS: BP 144/77; PULSE 67; TEMP 37; O2SAT 97
[2017-09-21 08:00] VITALS: O2SAT 97
[2017-09-21] MEDS: OXYBUTYNIN CHLORIDE 5 MG TAB PO SCH (08:53)
[2017-09-21] MEDS: FUROSEMIDE 40 MG TAB PO SCH (08:53)
[2017-09-21] MEDS: LISINOPRIL 5 MG TAB PO SCH (08:53)
[2017-09-21] MEDS: SERTRALINE HCL 50 MG TAB PO SCH (08:53)
[2017-09-21] MEDS: METOPROLOL SUCC 50MG EXT REL TAB PO SCH (08:53)
[2017-09-21 15:31] VITALS: BP 111/54; PULSE 68; TEMP 37.1; O2SAT 99
[2017-09-21] MEDS ORDERED: CFT250 PO (16:01)
--- NOTE | 2017-09-21 16:09 | Discharge Instructions ---
Discharge Instructions Date of Service September 21, 2017. Admission Reason for Admission: Generalized Weakness,Uti Discharge Discharge Diagnosis / Problem: UTI Discharge Goals Goal(s): Decrease discomfort, Improve function Activity Recommendations Activity Limitations: as noted below Lifting Limitations: gradually increase as tolerated . Instructions / Follow-Up Instructions / Follow-Up Continue daily dressings to right leg wound. She will continue to follow up with the wound clinic regarding this. Please schedule an appointment with wound care clinic. In regards to tremors, please scheuld appointment with neurology within next 2 weeks. Please schedule appointment with PCP within next month. Current Hospital Diet Patient's current hospital diet: Low Sodium Diet (2gm Na) Discharge Diet Recommended Diet: Low Sodium Diet (2gm Na) Pending Studies Studies pending at discharge: no Medical Emergencies . Who to Call and When: Medical Emergencies: If at any time you feel your situation is an emergency, please call 911 immediately. . Non-Emergent Contact Non-Emergency issues call your: Primary Care Provider Call Non-Emergent contact if: you have any medication questions . . "Provider Documentation" section prepared by Go Coronado. .
[2017-09-21 16:39] VITALS: BP 111/54; PULSE 68; TEMP 37.1; O2SAT 99
--- NOTE | 2017-09-22 21:20 | Discharge Summary ---
Discharge Summary Date of Service September 21, 2017. Discharge Summary Admission Date: September 19, 2017 at 16:27 Discharge Date: September 21, 2017 Discharge Disposition: Rehab Principal Diagnosis: Indwelling mathews catheter associated UTI, present on admission Immunizations: Have You Had Influenza Vaccine: Yes Influenza Vaccine Date: Mar 21, 2011 History of Tetanus Vaccine?: Yes Tetanus Immunization Date: Aug 20, 2011 History of Pneumococcal: Yes "Sometime in the " Pneumococcal Date: Nov 30, 2007 History of Hepatitis B Vaccine: No Medication Reconciliation New Medications: Cefuroxime Axetil (Cefuroxime Axetil) 250 Mg Tab 1 TAB PO BID for 8 Days, #16 TAB 0 Refills Continued Medications: Furosemide (Lasix) 40 Mg Tab 40 MG PO QAM Levothyroxine Sodium (Synthroid) 175 Mcg Tab 175 MCG PO QAM, TAB Lisinopril (Lisinopril) 5 Mg Tab 5 MG PO QAM Meloxicam (Mobic) 7.5 Mg Tab 7.5 MG PO DAILY PRN for Pain, TAB Metoprolol Succ (Toprol Xl) (Toprol-Xl) 50 Mg Tabcr 50 MG PO QPM Oxybutynin Chloride (Ditropan) 5 Mg Tab 5 MG PO TID PRN for Bladder Spasm, TAB Senna (Senokot) 8.6 Mg Tab 17.2 MG PO HS, TAB Sertraline (Zoloft) 50 Mg Tab 50 MG PO QAM, TAB Discharge Exam Review of Systems Constitutional: No fever, No chills Eyes: No worsening of vision ENT: No hearing loss Respiratory: No cough Abdomen: No pain Neurologic: No paralysis Psychiatric: No depression symptoms Endo: + fatigue Skin: No rash PHYSICAL EXAM General Appearance: WD/WN, no apparent distress ENT: normal ENT inspection Neck: supple, no adenopathy Respiratory/Chest: chest non-tender, lungs clear, normal breath sounds Cardiovascular: regular rate, rhythm, no JVD Abdomen: normal bowel sounds, non tender, soft Extremities: normal range of motion, non-tender, + pertinent finding ( her lower extremities have dusky venous stasis changes there is a $0.50 size opening of the right lower extremity and anterior part of the distal third which is beefy erythematous and does not look actively infected) Neurologic/Psychiatric: alert Skin: normal color Lymphatic: no adenopathy Hospital Course ASSESSMENT: 1. Indwelling mathews catheter associated UTI, present on admission 2. Generalized weakness, ambulatory dysfunction, and high risk for falls. 3. Hypertension. 4. History of lumbar spinal stenosis status post decompression and fusion. 5. Neurogenic bladder. 6. Hypothyroidism. 7. Diagnosis, as mentioned above. PLAN: 1. Admit to medical floor to Dr. Lambert's service. 2. Begin empiric levofloxacin 500 mg IV daily. Proteus mirabilis and e. facelis. will switch to cefuroxime as these were senistive to this. 3. Would prefer to remove cath, but patient unable to intermittently cath herself 4. Consult occupational therapy and physical therapy. will need SNF for discharge for rehab 5. Continue usual outpatient medications including Toprol-XL, lisinopril, furosemide, levothyroxine, Zoloft, oxybutynin. 5. Hold meloxicam and ibuprofen during hospital stay. will resume as outpatient. 6. Continue dressings to right leg wound. She will continue to follow up with the wound clinic regarding this. 7. Begin now Lovenox for deep venous thrombosis prophylaxis. 8. We will continue to closely follow while hospitalized t. Total Time Spent: Greater than 30 minutes This includes examination of the patient, discharge planning, medication reconciliation, and communication with other providers. Discharge Instructions Please refer to the electronic Patient Visit Report (Discharge Instructions) for additional information. Follow-Up NOTED IN DISCHARGE INSTRUCTIONS Additional Copies To Christen Hicks C.R.N.P
== END 2017-09-21 18:01 | DRG 698 ==
LOC: C.EDB 13:46 → C.MS4W 16:27 → ENRESERV 16:43
PROVIDERS: ADMIT Internal Medicine; ATTEND Internal Medicine Sports Medicine
DX: T83.518A Infection and inflammatory reaction due to other urinary catheter, initial encounter (principal); G93.41 Metabolic encephalopathy; N30.01 Acute cystitis with hematuria; Y73.2 Prosthetic and other implants, materials and accessory gastroenterology and urology devices associated with adverse incidents; R53.1 Weakness; R26.2 Difficulty in walking, not elsewhere classified; I10 Essential (primary) hypertension; N31.9 Neuromuscular dysfunction of bladder, unspecified; E03.9 Hypothyroidism, unspecified; R25.1 Tremor, unspecified; I89.0 Lymphedema, not elsewhere classified; I87.2 Venous insufficiency (chronic) (peripheral); S81.801D Unspecified open wound, right lower leg, subsequent encounter; X58.XXXD Exposure to other specified factors, subsequent encounter; M19.90 Unspecified osteoarthritis, unspecified site; F32.9 Major depressive disorder, single episode, unspecified; E66.09 Other obesity due to excess calories; Z68.36 Body mass index [BMI] 36.0-36.9, adult; Z91.81 History of falling; Z79.899 Other long term (current) drug therapy; Z98.1 Arthrodesis status

== ENCOUNTER → 2017-11-26 | Outpatient (CLI) | payer BC, OTHER ==
[~2017-11-26] MED LIST changes: +CFT250 PO; +DTR/5 PO; +GABA-112 PO; +LEVO175T PO; +LISI-730 PO; +MELO7.5T6 PO; +METO50TA8 PO; +SENN-61 PO; +SERT50TA PO
[2017-11-26 13:31] LABS: BLOOD UREA NITROGEN 20 mg/dl (7-18); CALCIUM 9.1 mg/dl (8.5-10.1); CARBON DIOXIDE 30 mmol/L (21-32); CREATININE 0.91 mg/dl (0.60-1.20); GLUCOSE 96 mg/dl (70-99); POTASSIUM 4.2 mmol/L (3.5-5.1); SODIUM 138 mmol/L (136-145)
== END | disposition home or self-care (01) ==
LOC: C.LABPVFM 11:36
PROVIDERS: ATTEND Nurse Practitioner
DX: I10 Essential (primary) hypertension (principal); E03.9 Hypothyroidism, unspecified

== ENCOUNTER 2019-05-01 16:01 | Inpatient (IN) ==
[2019-05-01] MEDS ORDERED: SODIUM CHLORIDE 0.9% 1000ML 1,000 ML IV SCH (17:00)
[2019-05-01 17:24] LABS: Basophils # (auto) 0.01 K/uL (0-0.2); Basophils % (auto) 0.1 %; Eosinophils # (auto) 0.09 K/uL (0-0.5); Eosinophils % (auto) 1.3 %; Hematocrit (blood only) 32.9 % (37-47); Hemoglobin 10.6 g/dL (12.0-16.0); Immature Granulocytes # (auto) 0.02 K/uL (0.00-0.02); Immature Granulocytes % (auto) 0.3 %; Lymphocytes % (auto) 7.3 %; Mean Corpuscular Hgb Conc 32.2 g/dL (32-36); Mean Corpuscular Volume 99.4 fL (80-100); Mean Platelet Volume 8.7 fL (7.4-10.4); Monocytes # (auto) 0.45 K/uL (0.11-0.59); Monocytes % (auto) 6.6 %; Neutrophils # (auto) 5.74 K/uL (1.4-6.5); Neutrophils % (auto) 84.4 %; Platelet Count 156 K/uL (130-400); Red Blood Count 3.31 M/uL (4.2-5.4); White Blood Count 6.81 K/uL (4.8-10.8)
--- NOTE | 2019-05-01 17:32 | XRay Report ---
XR chest 1V portable CLINICAL HISTORY: weakness COMPARISON STUDY: Chest radiograph March 11, 2019. FINDINGS: Lung volumes are normal. There is no pneumothorax or pleural effusion. There is no consolid ation or evidence for pulmonary edema. Cardiomegaly is unchanged. Thoracolumbar spine fusion hardware is partially imaged. IMPRESSION: No acute cardiopulmonary findings. No change in appearance of the chest. ACT 112: Negative or not required by law. Electronically signed by: Dougie Pruitt M.D. 05/01/2019 5:31 PM
[2019-05-01 17:43] LABS: Albumin Level 2.9 gm/dl (3.4-5.0); BUN Creatinine Ratio 24.2 (10-20); Calcium 8.9 mg/dl (8.5-10.1); Creatinine Clr Calc Pharmacy 45.2 ml/min; Est GFR (African American) 56.2; Est GFR (Non-African American) 48.5; Magnesium 2.1 mg/dl (1.8-2.4); Potassium 4.2 mmol/L (3.5-5.1)
--- NOTE | 2019-05-01 17:43 | CT Scan Report ---
CT OF THE HEAD WITHOUT CONTRAST CLINICAL HISTORY: weakness, confusion COMPARISON STUDY: Head CT March 11, 2019. CT DOSE: 537.48 mGy.cm TECHNIQUE: Helical axial images of the head were obtained without IV contrast. Automated exposure con trol was utilized for the study. A dose lowering technique was utilized adhering to the principles o f ALARA. FINDINGS: No acute intracranial hemorrhage, midline shift or mass effect is present. The ventricular system is unremarkable. The basilar cisterns are patent. No extra-axial collections are present. Ther e are no findings to suggest acute dural sinus thrombosis or acute territorial infarct. No significan t calvarial abnormalities are present. Visualized portions of the sinuses and mastoid air cells are c lear. White matter hypodensity suggests small vessel disease. 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 This is unchanged. There may be an old lacunar infarct within the left thalamus. IMPRESSION: No acute intracranial findings. ACT 112: Negative or not required by law. Electronically signed by: Dougie Pruitt M.D. 05/01/2019 5:42 PM
[2019-05-01 17:53] LABS: Albumin Globulin Ratio 0.7 (0.9-2); Bilirubin,Total 0.4 mg/dl (0.2-1); Globulin 4.2 gm/dl (2.5-4.0); Thyroid Stimulating Hormone 0.479 uIu/ml (0.300-4.500); Total Protein 7.1 gm/dl (6.4-8.2); Troponin I 0.018 ng/ml (0-0.045)
[2019-05-01 18:08] LABS: Appearance Urine Clear (Clear); Bacteria Urine Automated Negative (Negative); Bilirubin Urine Negative (Negative); Blood Urine Trace (Negative); Cast Urine Automated 0 /lpf (0-5); Color Urine Yellow; Epithelial Cell Urine Auto 0-5 /lpf (0-5); Glucose Urine UA Negative (Negative); Ketones Urine Negative (Negative); Leukocyte Esterase Urine 1+ (Negative); Nitrite Urine Positive (Negative); Protein Urine Negative (Negative); RBC Urine Automated 0-4 /hpf (0-4); Specific Gravity Urine 1.004 (1.000-1.030); Urobilinogen Urine Negative (Negative)
--- NOTE | 2019-05-01 19:16 | Emergency Department Note ---
Entered by Sally Ochoa acting as a scribe for History of Present Illness General Chief complaint: Illness Stated complaint: INCREASE WEAKNESS & AMS Time Seen by Provider: 05/01/19 16:05 Source: patient History of Present Illness Provider complaint: Weakness Onset (ago): week(s) 1 Location: upper extremity and lower extremity Maximum Pain Intensity: 0 Relieved By: + none Exacerbated By: + movement Associated symptoms: + denies other symptoms (Abdominal pain, visual changes), + confusion and + cough; no chest pain, no fever/chills, no nausea/vomiting and no shortness of breath The patient is a 88 year old female who presents to the Emergency Room with complaints of generalized weakness that began 1 week ago. The patient's family states the symptoms are exacerbated by movement but not relieved by anything specific. The patient's family notes that the patient goes to the wound clinic and was placed on Keflex and that night was unable to even stand up which is not normal for her. The patient's family states the patient is typically able to stand up with assistance and can stand on her own and get into her wheelchair but now needs help even standing up. The patient's family reports the patient experiencing increased confusion and a slight cough. The patient's family denies the patient experiencing any abdominal pain, visual changes, chest pain, fever/chills, nausea/vomiting or shortness of breath. The patient's family notes that she lives alone but has not had any recent falls. Home Health does not believe the patient is safe at home due to increased weakness and inability to transfer even with assistance. Home Medications Home Medications Medication Instructions Recorded Confirmed Type lisinopril 5 mg tablet 5 mg PO DAILY 12/29/17 05/01/19 History furosemide 40 mg tablet 40 mg PO DAILY #30 tab 11/29/18 05/01/19 Rx levothyroxine 175 mcg tablet 175 mcg PO DAILY #30 tab 11/29/18 05/01/19 Rx metoprolol succinate 50 mg 50 mg PO DAILY #30 tab 11/29/18 05/01/19 Rx tablet,extended release 24 hr oxybutynin chloride 5 mg tablet 5 mg PO TID PRN #90 tab 11/29/18 05/01/19 Rx psyllium husk (aspartame) 3.4 3 gm PO DAILY PRN gm 11/29/18 05/01/19 History gram/5.8 gram oral powder sertraline 50 mg tablet 50 mg PO DAILY #30 tab 11/29/18 05/01/19 Rx diclofenac sodium [Voltaren] 1 % TOPICAL QID PRN 03/11/19 05/01/19 History gabapentin [Neurontin] 300 mg PO HS 03/11/19 05/01/19 History ibuprofen 400 mg PO HS 03/11/19 05/01/19 History omeprazole 20 mg capsule,delayed See Rx Instructions .ROUTE 03/14/19 05/01/19 Rx release .COMPLEX #30 capsule nystatin 100,000 unit/gram topical See Rx Instructions .ROUTE 03/28/19 05/01/19 History powder .COMPLEX PRN gm sennosides 8.6 mg tablet 17.2 mg PO HS tab 03/28/19 05/01/19 History cephalexin 500 mg capsule 500 mg PO qid #40 cap 04/24/19 05/01/19 Rx Allergies Allergy/AdvReac Type Severity Reaction Status Date / Time No Known Allergies Allergy Unknown Verified 04/24/19 13:39 Past Med/Surg History Medical History Allergic rhinitis (Acute) Arthralgia of multiple sites, bilateral (Acute) Arthritis (Acute) Bladder spasms (Chronic) Depression (Chronic) Depression (Chronic) Falls frequently (Acute) Rivera catheter in place (Chronic) Generalized weakness (Chronic) Hypertension (Chronic) Hypertension (Chronic) Hypothyroidism (Chronic) Impaired renal function (Acute) Intertrigo (Acute) Lymphedema (Chronic) Obesity (Acute) Peripheral neuropathy (Chronic) Skin cancer (melanoma) (Acute) Spinal stenosis (Acute) Surgical wound, non healing (Resolved) Syncope (Acute) Tremor (Acute) Unsteady gait (Chronic) UTI (urinary tract infection) (Acute) Venous insufficiency (Acute) Surgical History H/O basal cell carcinoma excision (Chronic) H/O spinal fusion (Resolved) S/P cholecystectomy (Resolved) S/P RICHIE-BSO (total abdominal hysterectomy and bilateral salpingo-oophorectomy) (Chronic) Family History Mother Diabetes Family/Other Uterus cancer Hypertension Social History Preferred Language: Latvian Communication Ability: Effective Visual Impairment: Limited Hearing Ability: Normal Maintenance Groundskeeper Required: No Beliefs That Will Affect Care: None marital status: Current Living Situation: Spouse Current Living Situation Comment: lives close to son, and also has caregiver in home from 11am to 7 pm current occupational status: retired Feels Safe at Home: Yes Safety Concerns: Feels Safe At This Time Smoking Status: Never smoker Hx Alcohol Use: No Hx Substance Use: No during the past year weight has: remained stable Review of Systems See HPI for pertinent positives & negatives. and A total of 10 systems reviewed and were otherwise negative Physical Exam Vital Signs Vital Signs - 24 hr 05/02/19 15:33 Temperature 37.1 C Temperature Source Oral Pulse Rate [Right Finger] 75 Respiratory Rate 20 Blood Pressure [Right Arm] 130/68 Blood Pressure Mean [Right Arm] 88 Blood Pressure Position [Right Arm] Lying Pulse Oximetry 90 Oxygen Delivery Method Room Air Vital signs reviewed. General: Chronically ill-appearing elderly female, in no significant distress. Rivera catheter in place with clear yellow urine. HEENT: No scleral icterus, PERRLA, neck supple. Atraumatic. Cardiovascular: Regular rate and rhythm, no extra sounds. Pulmonary: Clear to auscultation bilaterally, normal work of breathing. Abdomen: Soft, nontender, nondistended, positive bowel sounds. Musculoskeletal: Atraumatic, chronic edema of bilateral lower extremities. Lower Extremities: Right leg several excoriated/ulcerated areas to anterior ford with chronic lymphedema and flaky skin. Neurologic: Patient awake but somnolent, equal strength in all 4 extremities. Generally weak. Skin: Warm, dry, small ulceration on right leg posteriorly. Left leg no open wounds present but dry and flaky skin noted. Course Course 160: Past medical records reviewed. The patient was seen and evaluated in room C06 by the Resident Physician at this time. History and physical were discussed with me. 1649: A complete history and physical exam was performed by me. 1856: I spoke with Dr. Tena Nevarez- Hospitalist about the patient's case and she will accept the patient for further evaluation. Administered Medications Benzonatate (Tessalon Perle) 100 mg PO TID [facility] Stop: 06/01/19 20:59 Last Admin: 05/03/19 13:37 Dose: 100 mg Documented by: [id number] Admin: 05/03/19 08:17 Dose: 100 mg Documented by: [id number] Admin: 05/02/19 21:10 Dose: 100 mg Documented by: [id number] Cephalexin HCl (Keflex) 500 mg PO BID [facility]; Protocol Stop: 05/11/19 08:59 Last Admin: 05/03/19 08:17 Dose: 500 mg Documented by: [id number] Admin: 05/02/19 21:10 Dose: 500 mg Documented by: [id number] Admin: 05/02/19 08:36 Dose: 500 mg Documented by: [id number] Furosemide (Lasix) 40 mg PO DAILY [facility] Stop: 06/01/19 08:59 Last Admin: 05/03/19 08:17 Dose: 40 mg Documented by: [id number] Admin: 05/02/19 08:36 Dose: 40 mg Documented by: [id number] Gabapentin (Neurontin) 300 mg PO HS [facility] Stop: 05/31/19 20:59 Last Admin: 05/02/19 21:10 Dose: 300 mg Documented by: [id number] Admin: 05/01/19 21:27 Dose: 300 mg Documented by: [id number] Heparin Sodium (Porcine) (Heparin Sodium (Porcine)) 5,000 units SQ Q8 [facility] Stop: 05/31/19 21:59 Last Admin: 05/03/19 13:37 Dose: 5,000 units Documented by: [id number] Cosigned by: [id number] Admin: 05/03/19 05:47 Dose: 5,000 units Documented by: [id number] Cosigned by: [id number] Admin: 05/02/19 21:11 Dose: 5,000 units Documented by: [id number] Cosigned by: [id number] Admin: 05/02/19 14:25 Dose: 5,000 units Documented by: [id number] Cosigned by: [id number] Admin: 05/02/19 06:43 Dose: 5,000 units Documented by: [id number] Cosigned by: [id number] Admin: 05/01/19 21:25 Dose: 5,000 units Documented by: [id number] Cosigned by: [id number] Ibuprofen (Advil) 400 mg PO [facility] Stop: 05/31/19 20:59 Last Admin: 12/31/19 21:11 Dose: 400 mg Documented by: [id number] Admin: 05/01/19 21:27 Dose: 400 mg Documented by: [id number] Levothyroxine Sodium (Synthroid) 175 mcg PO DAILYBB [facility] Stop: 06/01/19 06:29 Last Admin: 05/03/19 05:47 Dose: 175 mcg Documented by: [id number] Admin: 05/02/19 06:42 Dose: 175 mcg Documented by: [id number] Lisinopril (Zestril) 5 mg PO DAILY [facility] Stop: 06/01/19 08:59 Last Admin: 05/03/19 08:18 Dose: 5 mg Documented by: [id number] Admin: 05/02/19 08:36 Dose: 5 mg Documented by: [id number] Metoprolol Succinate (Toprol Xl) 50 mg PO DAILY [facility] Stop: 06/01/19 08:59 Last Admin: 05/03/19 08:18 Dose: 50 mg Documented by: [id number] Admin: 05/02/19 08:36 Dose: 50 mg Documented by: [id number] Sennosides (Senokot) 17.2 mg PO HS [facility] Stop: 05/31/19 20:59 Last Admin: 05/02/19 21:10 Dose: 17.2 mg Documented by: [id number] Admin: 05/01/19 21:26 Dose: 17.2 mg Documented by: [id number] Sertraline HCl (Zoloft) 50 mg PO DAILY [facility] Stop: 06/01/19 08:59 Last Admin: 05/03/19 08:19 Dose: 50 mg Documented by: [id number] Admin: 05/02/19 08:36 Dose: 50 mg Documented by: [id number] Discontinued Medications Cephalexin HCl (Keflex) 500 mg PO NOW ONE Stop: 05/01/19 19:30 Last Admin: 05/01/19 19:33 Dose: 500 mg Documented by: [id number] Sodium Chloride (Nss 1000ml) 1,000 mls @ 100 mls/hr IV .Q10H [facility] Stop: 05/02/19 02:59 Last Infusion: 05/02/19 08:27 Dose: 0 mls/hr Documented by: [id number] Admin: 05/01/19 17:23 Dose: 100 mls/hr Documented by: [id number] Menthol (Nice) Confirm Administered Dose 24 hodan BUCCAL .STK-MED ONE Stop: 05/02/19 14:14 Last Admin: 05/02/19 14:25 Dose: 24 hodan Documented by: [id number] Medical Decision Making Differential Diagnosis Differential Diagnosis includes but is not limited to dehydration, stroke, ane monica, hypoglycemia, hyponatremia, hypernatremia, urinary tract infection, pneumonia, bronchitis, sepsis, gastroenteritis, additional abdominal pathology, metabolic abnormalities and infections. Medical Records Attestation: I reviewed the patient's medical records. Home Medications Current Medication List: was personally reviewed by me Laboratory Data Attestation: I reviewed the patient's lab results. Result diagrams: 05/03/19 05:36 05/03/19 05:36 Lab Results 05/01/19 05/01/19 05/01/19 Range/Units 17:10 17:10 17:42 WBC 6.81 (4.8-10.8) K/uL RBC 3.31 L (4.2-5.4) M/uL Hgb 10.6 L (12.0-16.0) g/dL Hct 32.9 L (37-47) % MCV 99.4 (80-100) fL MCH 32.0 (25-34) pg MCHC 32.2 (32-36) g/dL RDW Std Deviation 47.0 H (36.4-46.3) fL RDW Coeff of Pradeep 13.0 (11.5-14.5) % Plt Count 156 (130-400) K/uL MPV 8.7 (7.4-10.4) fL Immature Gran % (Auto) 0.3 % Neut % (Auto) 84.4 % Lymph % (Auto) 7.3 % Hitchcock % (Auto) 6.6 % Eos % (Auto) 1.3 % Baso % (Auto) 0.1 % Immature Gran # (Auto) 0.02 (0.00-0.02) K/uL Neut # (Auto) 5.74 (1.4-6.5) K/uL Lymph # (Auto) 0.50 L (1.2-3.4) K/uL Hitchcock # (Auto) 0.45 (0.11-0.59) K/uL Eos # (Auto) 0.09 (0-0.5) K/uL Baso # (Auto) 0.01 (0-0.2) K/uL Sodium 138 (136-145) mmol/L Potassium 4.2 (3.5-5.1) mmol/L Chloride 102 (98-107) mmol/L Carbon Dioxide 31 (21-32) mmol/L Anion Gap 5.0 (3-11) BUN 25 H (7-18) mg/dl Creatinine 1.03 (0.6-1.2) mg/dl Est Cr Clr Drug Dosing 45.2 ml/min Est GFR ( Amer) 56.2 Est GFR (Non-Af Amer) 48.5 BUN/Creatinine Ratio 24.2 H (10-20) Glucose 118 H (70-99) mg/dl Calcium 8.9 (8.5-10.1) mg/dl Magnesium 2.1 (1.8-2.4) mg/dl Total Bilirubin 0.4 (0.2-1) mg/dl AST 15 (15-37) U/L ALT 18 (12-78) U/L Alkaline Phosphatase 131 H (45-117) U/L Troponin I 0.018 (0-0.045) ng/ml Total Protein 7.1 (6.4-8.2) gm/dl Albumin 2.9 L (3.4-5.0) gm/dl Globulin 4.2 H (2.5-4.0) gm/dl Albumin/Globulin Ratio 0.7 L (0.9-2) TSH 0.479 (0.300-4.500) uIu/ml Urine Color Yellow Urine Appearance Clear (Clear) Urine pH 7.0 (4.5-7.5) Ur Specific Hemphill 1.004 (1.000-1.030) Urine Protein Negative (Negative) Urine Glucose (UA) Negative (Negative) Urine Ketones Negative (Negative) Urine Blood Trace H (Negative) Urine Nitrite Positive A (Negative) Urine Bilirubin Negative (Negative) Urine Urobilinogen Negative (Negative) Ur Leukocyte Esterase 1+ H (Negative) Urine WBC (Auto) 1-5 (0-5) /hpf Urine RBC (Auto) 0-4 (0-4) /hpf U Hyaline Cast (Auto) 0 (0-5) /lpf U Epithel Cells (Auto) 0-5 (0-5) /lpf Urine Bacteria (Auto) Negative (Negative) Influenza Type A Ag (Neg) Influenza Type B Ag (Neg) 05/02/19 05/02/19 Range/Units 11:50 16:00 WBC (4.8-10.8) K/uL RBC (4.2-5.4) M/uL Hgb (12.0-16.0) g/dL Hct (37-47) % MCV (80-100) fL MCH (25-34) pg MCHC (32-36) g/dL RDW Std Deviation (36.4-46.3) fL RDW Coeff of Pradeep (11.5-14.5) % Plt Count (130-400) K/uL MPV (7.4-10.4) fL Immature Gran % (Auto) % Neut % (Auto) % Lymph % (Auto) % Hitchcock % (Auto) % Eos % (Auto) % Baso % (Auto) % Immature Gran # (Auto) (0.00-0.02) K/uL Neut # (Auto) (1.4-6.5) K/uL Lymph # (Auto) (1.2-3.4) K/uL Hitchcock # (Auto) (0.11-0.59) K/uL Eos # (Auto) (0-0.5) K/uL Baso # (Auto) (0-0.2) K/uL Sodium (136-145) mmol/L Potassium (3.5-5.1) mmol/L Chloride (98-107) mmol/L Carbon Dioxide (21-32) mmol/L Anion Gap (3-11) BUN (7-18) mg/dl Creatinine 0.93 (0.6-1.2) mg/dl Est Cr Clr Drug Dosing 50.0 ml/min Est GFR ( Amer) 63.6 Est GFR (Non-Af Amer) 54.9 BUN/Creatinine Ratio (10-20) Glucose (70-99) mg/dl Calcium (8.5-10.1) mg/dl Magnesium (1.8-2.4) mg/dl Total Bilirubin (0.2-1) mg/dl AST (15-37) U/L ALT (12-78) U/L Alkaline Phosphatase (45-117) U/L Troponin I (0-0.045) ng/ml Total Protein (6.4-8.2) gm/dl Albumin (3.4-5.0) gm/dl Globulin (2.5-4.0) gm/dl Albumin/Globulin Ratio (0.9-2) TSH (0.300-4.500) uIu/ml Urine Color Urine Appearance (Clear) Urine pH (4.5-7.5) Ur Specific Hemphill (1.000-1.030) Urine Protein (Negative) Urine Glucose (UA) (Negative) Urine Ketones (Negative) Urine Blood (Negative) Urine Nitrite (Negative) Urine Bilirubin (Negative) Urine Urobilinogen (Negative) Ur Leukocyte Esterase (Negative) Urine WBC (Auto) (0-5) /hpf Urine RBC (Auto) (0-4) /hpf U Hyaline Cast (Auto) (0-5) /lpf U Epithel Cells (Auto) (0-5) /lpf Urine Bacteria (Auto) (Negative) Influenza Type A Ag Neg for Influ A (Neg) Influenza Type B Ag Neg for Influ B (Neg) Imaging Data Radiologist's Impression: Radiology results as stated below per my review and the radiologist's interpretation: XR chest 1V portable CLINICAL HISTORY: weakness COMPARISON STUDY: Chest radiograph March 11, 2019. FINDINGS: Lung volumes are normal. There is no pneumothorax or pleural effusion. There is no consolidation or evidence for pulmonary edema. Cardiomegaly is unchanged. Thoracolumbar spine fusion hardware is partially imaged. IMPRESSION: No acute cardiopulmonary findings. No change in appearance of the chest. ACT 112: Negative or not required by law. Electronically signed by: Dougie Pruitt M.D. 05/01/2019 5:[address] OF THE HEAD WITHOUT CONTRAST CLINICAL HISTORY: weakness, confusion COMPARISON STUDY: Head CT March 11, 2019. CT DOSE: 537.48 mGy.cm TECHNIQUE: Helical axial images of the head were obtained without IV contrast. Automated exposure control was utilized for the study. A dose lowering technique was utilized adhering to the principles of ALARA. FINDINGS: No acute intracranial hemorrhage, midline shift or mass effect is present. The ventricular system is unremarkable. The basilar cisterns are patent. No extra-axial collections are present. There are no findings to suggest acute dural sinus thrombosis or acute territorial infarct. No significant calvarial abnormalities are present. Visualized portions of the sinuses and mastoid air cells are clear. White matter hypodensity suggests small vessel disease. 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 This is unchanged. There may be an old lacunar infarct within the left thalamus. IMPRESSION: No acute intracranial findings. ACT 112: Negative or not required by law. Electronically signed by: Dougie Pruitt M.D. 05/01/2019 5:42 PM ECG Data Attestation: I personally reviewed and interpreted this ECG as follows: Indication: + weakness Rate (beats per minute): 70 Rhythm: + sinus rhythm ECG Intervals/blocks: + First degree AV block, + Right Bundle branch block and + Normal QT-c (QTC 457) ECG Curlew: + Left axis deviation ECG Findings: no PACs and no PVCs Blood Pressure Blood Pressure Findings: Low blood pressure Blood Pressure Disposition: further management by hospitalist MDM Narrative This pt was evaluated and appeared to be in no distress. IV access was obtained and lab work was drawn. Pt was placed on the ekg monitor tech. Pt is generally deconditioned on exam, but there are no focal findings. Pt is slow to answer, but most simple questions are answered appropriately. Lab work, urine and head CT are negative for acute process. Pt legs were unwrapped and chronic edema noted. Several venous stasis ulcers noted without any evidence of infection. Situation was discussed with family who states pt is currently in her own home. She is no longer able to be cared for by family and they are interested in rehab vs permanent placement. Case was reviewed with Dr Nevarez of the [facility] [place] who will evaluate the pt for further management. Impression & Plan Generalized weakness, Lymphedema, Ambulatory dysfunction, Venous stasis ulcer Discharge Plan Visit Data *Final* Discharge Date/Time: 05/01/19 20:06 Chief Complaint: Illness Stated Complaint: INCREASE WEAKNESS & AMS ED Provider: Alysa Whittington Discharge Problem: Generalized weakness, Lymphedema, Ambulatory dysfunction, Venous stasis ulcer Patient Disposition: Admitted As Inpatient Discharge Instructions Interventions: ED Discharge Assessment Last Done: 05/01/19 20:06 Discharge Problem: Venous stasis ulcer Qualifiers: Venous stasis ulcer site: other part of lower leg Varicose vein presence: without varicose veins Laterality: right Non-pressure ulcer stage: limited to breakdown of skin Qualified Code(s): I87.2 - Venous insufficiency (chronic) (peripheral) The scribe's documentation has been prepared under my direction and personally reviewed by me in its entirety. I confirm that the note above accurately reflects all work, treatment, procedures, and medical decision making performed by me.
[2019-05-01] MEDS ORDERED: POLYETHYLENE (MIRALAX) 17 GM PACK PO PRN (19:27)
[2019-05-01] MEDS ORDERED: ONDANSETRON INJ 2 MG/ML 2 ML VIAL IV PRN (19:27)
[2019-05-01] MEDS ORDERED: ACETAMINOPHEN 325 MG TAB PO PRN (19:27)
[2019-05-01] MEDS ORDERED: MAGNESIUM HYDROXIDE SUSP 30 ML UDC PO PRN (19:27)
[2019-05-01] MEDS ORDERED: ALUMINUM/MAGNESIUM SUSP 30 ML UDC PO PRN (19:27)
[2019-05-01] MEDS ORDERED: cephALEXin 250 MG CAP PO ONE (19:29)
--- NOTE | 2019-05-01 19:38 | History & Physical Report ---
Date of Service May 01, 2019 Assessment & Plan (1) Lymphedema: 88 y/o F Hx depression, morbid obesity, hypothyroidism, HTN, lymphedema with chronic ulcers, urinary retention with chronic Rivera. Presents to the hospital by way of family who state she is exhibiting progressive difficulty with ambulation and transferring. 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 The family would like her to be placed in rehab therefore, if not long-term care. The pt has no complaints. She is eing treated for a small ulcer on the back of her R heal with antibiotics which were provided based on culture results. She visits a wound care clinic weekly for chronic LE ulcers. 1) Inability to ambulate/transfer - PT/OT AM for rehab placement assessment 2) Heel ulcer - cont Keflex 3) HTN - cont Metorprolol 4) Lymphedema - uses wraps, elevation and Lasix 5) Hypothyroidism - cont Synthroid 6) Urinary retention - Rivera in place Full code - Heparin prophylaxis Total time for this admit including review of labs, meds, imaging, records - discussion with ER attending, pt, family at bedside - 36 min Present on Admission?: Yes History of Present Illness Primary Care Provider: Addie Covarrubias MD 88 y/o F Hx depression, morbid obesity, hypothyroidism, HTN, lymphedema with chronic ulcers, urinary retention with chronic Rivera. Presents to the hospital by way of family who state she is exhibiting progressive difficulty with ambulation and transferring. 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 The family would like her to be placed in rehab therefore, if not long-term care. The pt has no complaints. She is eing treated for a small ulcer on the back of her R heal with antibiotics which were provided based on culture results. She visits a wound care clinic weekly for chronic LE ulcers. PMH: 1) Morbid obesity 2) Hypothyroidism 3) Chronic lymphedema with stasis ulcers 4) Depression 5) Lumbar spinal stenosis 6) HTN 7) Spastic bladder 8) Chronic urinary retention - Rivera 9) Basal skin CA Surgical: 1) Lumbar decompression and fusion 2) Hysterectomy 3) Cholecystectomy Social: No history of drinking or smoking Lives at [facility] home aids and children nearby Family: Noncontributory due to pt's age Allergies Allergy/AdvReac Type Severity Reaction Status Date / Time No Known Allergies Allergy Unknown Verified 04/24/19 13:39 Home Medications Home Medications Medication Instructions Recorded Confirmed Type lisinopril 5 mg tablet 5 mg PO DAILY 12/29/17 05/01/19 History furosemide 40 mg tablet 40 mg PO DAILY #30 tab 11/29/18 05/01/19 Rx levothyroxine 175 mcg tablet 175 mcg PO DAILY #30 tab 11/29/18 05/01/19 Rx metoprolol succinate 50 mg 50 mg PO DAILY #30 tab 11/29/18 05/01/19 Rx tablet,extended release 24 hr oxybutynin chloride 5 mg tablet 5 mg PO TID PRN #90 tab 11/29/18 05/01/19 Rx psyllium husk (aspartame) 3.4 3 gm PO DAILY PRN gm 11/29/18 05/01/19 History gram/5.8 gram oral powder sertraline 50 mg tablet 50 mg PO DAILY #30 tab 11/29/18 05/01/19 Rx diclofenac sodium [Voltaren] 1 % TOPICAL QID PRN 03/11/19 05/01/19 History gabapentin [Neurontin] 300 mg PO HS 03/11/19 05/01/19 History ibuprofen 400 mg PO HS 03/11/19 05/01/19 History omeprazole 20 mg capsule,delayed See Rx Instructions .ROUTE 03/14/19 05/01/19 Rx release .COMPLEX #30 capsule nystatin 100,000 unit/gram topical See Rx Instructions .ROUTE 03/28/19 05/01/19 History powder .COMPLEX PRN gm sennosides 8.6 mg tablet 17.2 mg PO HS tab 03/28/19 05/01/19 History cephalexin 500 mg capsule 500 mg PO qid #40 cap 04/24/19 05/01/19 Rx Past Med/Surg History Medical History Allergic rhinitis (Acute) Arthralgia of multiple sites, bilateral (Acute) Arthritis (Acute) Bladder spasms (Chronic) Depression (Chronic) Depression (Chronic) Falls frequently (Acute) Rivera catheter in place (Chronic) Generalized weakness (Chronic) Hypertension (Chronic) Hypertension (Chronic) Hypothyroidism (Chronic) Impaired renal function (Acute) Intertrigo (Acute) Lymphedema (Chronic) Obesity (Acute) Peripheral neuropathy (Chronic) Skin cancer (melanoma) (Acute) Spinal stenosis (Acute) Surgical wound, non healing (Resolved) Syncope (Acute) Tremor (Acute) Unsteady gait (Chronic) UTI (urinary tract infection) (Acute) Venous insufficiency (Acute) Surgical History H/O basal cell carcinoma excision (Chronic) H/O spinal fusion (Resolved) S/P cholecystectomy (Resolved) S/P RICHIE-BSO (total abdominal hysterectomy and bilateral salpingo-oophorectomy) (Chronic) Family History Mother Diabetes Family/Other Uterus cancer Hypertension Social History Communication Ability: Effective Visual Impairment: Limited Hearing Ability: Normal Beliefs That Will Affect Care: None marital status: Current Living Situation: Alone Current Living Situation Comment: lives close to son, and also has caregiver in home from 11am to 7 pm current occupational status: retired Feels Safe at Home: Yes Smoking Status: Never smoker Hx Alcohol Use: No Hx Substance Use: No during the past year weight has: remained stable Review of Systems Review of Systems: Unobtainable due to cognitive status Pt may not be a reliable historian. Brought in by family due to weakness No complaints on admission, therefore ROS not obtained from pt Physical Exam Physical Exam: General: Obese, elderly F, AAO - responds to commands - oriented ENT: No erythema or exudates, no thrush Eyes: LEWIS, EOMI Head and neck: Normocephalic, atraumatic, neck is supple. Chest/heart: Nontender, S1,2, faint, no murmurs, no gallops Lungs: CTAB, no wheezing or crackles Abdomen: Nontender, nondistended, BS+ Neuro: AAO x 3, speech is clear, no unilateral weakness or loss of sensation, coordination intact Musculoskeletal: No joint inflammation, muscle tenderness, FROM Skin: [place]ow ulcers on anterior of both LES - small ulcer on post of R heel Extremities:3+ BL edema with stasis color changes Results & Data Vital Signs (Past 12 Hours) Vital Signs Temp Pulse Pulse Resp BP BP Pulse Ox 05/01/19 17:28 85 22 152/73 H 98 05/01/19 16:54 95 05/01/19 16:00 98.6 F 73 20 136/54 L 96 Code Status & VTE Plan VTE Prophylaxis Plan VTE Prophylaxis will be ordered: Yes PG Care Time/CCT Total # of Minutes Spent Total Time Spent with Patient: Total time spent is greater than 50% in coordination of care (as documented) at patient's floor/unit and/or counseling patient:
[2019-05-01] MEDS ORDERED: NYSTATIN POWDER 15GM BTL EXT PRN (20:22)
[2019-05-01] MEDS ORDERED: OXYBUTYNIN CHLORIDE 5 MG TAB PO PRN (20:22)
[2019-05-01] MEDS: HEPARIN SOD 5,000 UNIT/0.5 ML VIAL SQ SCH (21:25)
[2019-05-01] MEDS: SENNA 8.6 MG TAB PO SCH (21:26)
[2019-05-01] MEDS: GABAPENTIN 300 MG CAP PO SCH (21:27)
[2019-05-01] MEDS: IBUPROFEN 200 MG TAB PO SCH (21:27)
[2019-05-02] MEDS: LEVOTHYROXINE SODIUM 175 MCG TABLET PO SCH (06:42)
[2019-05-02] MEDS: HEPARIN SOD 5,000 UNIT/0.5 ML VIAL SQ SCH ×3 (06:43→21:11)
[2019-05-02] MEDS: lisinopriL 5 MG TAB PO SCH (08:36)
[2019-05-02] MEDS: METOPROLOL SUCC 50MG EXT REL TAB PO SCH (08:36)
[2019-05-02] MEDS: cephALEXin 500 MG CAP PO SCH ×2 (08:36→21:10)
[2019-05-02] MEDS: SERTRALINE HCL 50 MG TABLET PO SCH (08:36)
[2019-05-02] MEDS: FUROSEMIDE 40 MG TAB PO SCH (08:36)
[2019-05-02 12:22] LABS: Est GFR (African American) 63.6; Est GFR (Non-African American) 54.9
[2019-05-02] MEDS ORDERED: COUGH DROP (SUGAR FREE) LOZ 24 LOZ/1 BOX BUCCAL ONE (14:13)
--- NOTE | 2019-05-02 15:50 | Hospitalist Progress Note ---
Date of Service May 02, 2019 Assessment & Plan (1) Lymphedema: 88 y/o F Hx depression, morbid obesity, hypothyroidism, HTN, lymphedema with chronic ulcers, urinary retention with chronic Mathews. Presents to the hospital by way of family who state she is exhibiting progressive difficulty with ambulation and transferring. 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 The family would like her to be placed in rehab therefore, if not long-term care. She visits a wound care clinic weekly for chronic LE ulcers. * Chronic * Use wraps, elevation, lasix 40mg * Wound RN * PT/OT * CM -- will likely need placement at discharge (2) Ambulatory dysfunction: * PT/OT * CM -- patient will likely need placement for acute rehab/SNF placement (3) Stage II pressure ulcer of right heel: * to RIGHT heel * Continue Keflex * Wound Care * Will need follow up with wound clinic at discharge (4) Arthralgia of multiple sites, bilateral: * Continue home gabapentin 300mg QHS (5) Depression: * Continue home sertraline (6) Hypothyroidism: * Continue home levothyroxine 175mcg * Last TSH 0.479 (7) Hypertension: * Stable, currently 130/68 * Continue home metoprolol 50mg, lisinopril 5mg (8) Urinary retention: * Chronic Mathews * Changed Q3 weeks by home nursing * Last changed 2 weeks ago -- will change during this admission, prior to discharge * Continue oxybutynin (9) Cough: * Non productive -- New over past 2 days -- will give tessalon pearls * CXR negative for acute process * O2 sat has been >92%, however most recent check with O2 sat 90% on Room Air this afternoon * Encourage deep breathing. * Will obtain flu swab --> If able, please sent sputum. (10) DVT prophylaxis: * Heparin SQ while inpatient Dispo: CM following, PT/OT pending with likely discharge to [facility] Supervising Physician Co-Signing Physician Notes Attending Attestation - Chart reviewed, care plan d/w EDUAR Calvillo. I agree w/ the sullivan components of her documentation. 88yo female with obesity, lymphedema, chronic leg ulcers - presented with progressive weakness/ambulatory dysfunction. Will need placement for rehab. Thus far w/u for metabolic causes of her progressive weakness has been negative. No obvious infectious etiology. Labs/vitals acceptable. Has mild borderline macrocytic anemia - consider checking b12/folate. PT, OT. Deven Jurado MD Subjective Ongoing concerns with weakness over the past several weeks. Discussion with patient regarding likely need for rehab upon discharge. Patient with ultimate goal to return home, where she has a caregiver from 11a-7p and family is available to help. Patient states she has been progressively getting weaker. New cough over the past two days, but patient denies any sputum production. Patient with chronic indwelling mathews catheter, that patient's oldest son states is changed every three weeks, with the most recent change occurring two weeks ago. Son states that he is aware [facility] has a more rigorous rehab program and does not believe his mother would be able to participate in that at this time. Patient states she had been to [facility] in the past, and had an alright experience and is not opposed to going there for rehab. Patient denies recent fevers, chills, chest pain, shortness of breath, sputum production, abdominal pain, n/v/d/c, dysuria, hematuria, or visual symptoms. Review of Systems Review of Systems: All systems reviewed & are unremarkable except as noted in HPI & below Physical Exam Constitutional: WD/WN, vitals as above + obese; no acute distress Eyes: + anicteric sclerae and PERRL Neck: trachea midline, no thyromegaly Respiratory: normal respiratory effort, lungs clear to auscultation Cardiovascular: Rate/Rhythm: regular rate and regular rhythm Heart Sounds: normal S1 and normal S2; no murmur and no cardiac rub Vessels: no JVD Extremities: + edema (3+ b/l LE lymphedema) Gastrointestinal (Abdomen): normal bowel sounds, soft, nontender, no hepatosplenomegaly Skin: ulcers anterior b/l LE RIGHT heel ulcer, approx Neurologic: PERRL, EOMI, accommodation nl, no face palsy, no dysarthria Psychiatric: A+Ox3, euthymic affect Genitourinary: mathews with yellow drainage Results & Data Vital Signs (Past 12 Hours) Vital Signs Temp Pulse Resp BP Pulse Ox 05/02/19 15:33 37.1 C 75 20 130/68 90 05/02/19 07:27 37.0 C 61 18 146/90 H 95 Laboratory Results 05/02/19 05/01/19 05/01/19 Range/Units 11:50 17:42 17:10 WBC (4.8-10.8) K/uL RBC (4.2-5.4) M/uL Hgb (12.0-16.0) g/dL Hct (37-47) % MCV (80-100) fL MCH (25-34) pg MCHC (32-36) g/dL RDW Std Deviation (36.4-46.3) fL RDW Coeff of Pradeep (11.5-14.5) % Plt Count (130-400) K/uL MPV (7.4-10.4) fL Immature Gran % (Auto) % Neut % (Auto) % Lymph % (Auto) % [place] % (Auto) % Eos % (Auto) % Baso % (Auto) % Immature Gran # (Auto) (0.00-0.02) K/uL Neut # (Auto) (1.4-6.5) K/uL Lymph # (Auto) (1.2-3.4) K/uL [place] # (Auto) (0.11-0.59) K/uL Eos # (Auto) (0-0.5) K/uL Baso # (Auto) (0-0.2) K/uL Sodium 138 (136-145) mmol/L Potassium 4.2 (3.5-5.1) mmol/L Chloride 102 (98-107) mmol/L Carbon Dioxide 31 (21-32) mmol/L Anion Gap 5.0 (3-11) BUN 25 H (7-18) mg/dl Creatinine 0.93 1.03 (0.6-1.2) mg/dl Est Cr Clr Drug Dosing 50.0 45.2 ml/min Est GFR ( Amer) 63.6 56.2 Est GFR (Non-Af Amer) 54.9 48.5 BUN/Creatinine Ratio 24.2 H (10-20) Glucose 118 H (70-99) mg/dl Calcium 8.9 (8.5-10.1) mg/dl Magnesium 2.1 (1.8-2.4) mg/dl Total Bilirubin 0.4 (0.2-1) mg/dl AST 15 (15-37) U/L ALT 18 (12-78) U/L Alkaline Phosphatase 131 H (45-117) U/L Troponin I 0.018 (0-0.045) ng/ml Total Protein 7.1 (6.4-8.2) gm/dl Albumin 2.9 L (3.4-5.0) gm/dl Globulin 4.2 H (2.5-4.0) gm/dl Albumin/Globulin Ratio 0.7 L (0.9-2) TSH 0.479 (0.300-4.500) uIu/ml Urine Color Yellow Urine Appearance Clear (Clear) Urine pH 7.0 (4.5-7.5) Ur Specific [place] 1.004 (1.000-1.030) Urine Protein Negative (Negative) Urine Glucose (UA) Negative (Negative) Urine Ketones Negative (Negative) Urine Blood Trace H (Negative) Urine Nitrite Positive A (Negative) Urine Bilirubin Negative (Negative) Urine Urobilinogen Negative (Negative) Ur Leukocyte Esterase 1+ H (Negative) Urine WBC (Auto) 1-5 (0-5) /hpf Urine RBC (Auto) 0-4 (0-4) /hpf U Hyaline Cast (Auto) 0 (0-5) /lpf U Epithel Cells (Auto) 0-5 (0-5) /lpf Urine Bacteria (Auto) Negative (Negative) 05/01/19 Range/Units 17:10 WBC 6.81 (4.8-10.8) K/uL RBC 3.31 L (4.2-5.4) M/uL Hgb 10.6 L (12.0-16.0) g/dL Hct 32.9 L (37-47) % MCV 99.4 (80-100) fL MCH 32.0 (25-34) pg MCHC 32.2 (32-36) g/dL RDW Std Deviation 47.0 H (36.4-46.3) fL RDW Coeff of Pradeep 13.0 (11.5-14.5) % Plt Count 156 (130-400) K/uL MPV 8.7 (7.4-10.4) fL Immature Gran % (Auto) 0.3 % Neut % (Auto) 84.4 % Lymph % (Auto) 7.3 % [place] % (Auto) 6.6 % Eos % (Auto) 1.3 % Baso % (Auto) 0.1 % Immature Gran # (Auto) 0.02 (0.00-0.02) K/uL Neut # (Auto) 5.74 (1.4-6.5) K/uL Lymph # (Auto) 0.50 L (1.2-3.4) K/uL [place] # (Auto) 0.45 (0.11-0.59) K/uL Eos # (Auto) 0.09 (0-0.5) K/uL Baso # (Auto) 0.01 (0-0.2) K/uL Sodium (136-145) mmol/L Potassium (3.5-5.1) mmol/L Chloride (98-107) mmol/L Carbon Dioxide (21-32) mmol/L Anion Gap (3-11) BUN (7-18) mg/dl Creatinine (0.6-1.2) mg/dl Est Cr Clr Drug Dosing ml/min Est GFR ( Amer) Est GFR (Non-Af Amer) BUN/Creatinine Ratio (10-20) Glucose (70-99) mg/dl Calcium (8.5-10.1) mg/dl Magnesium (1.8-2.4) mg/dl Total Bilirubin (0.2-1) mg/dl AST (15-37) U/L ALT (12-78) U/L Alkaline Phosphatase (45-117) U/L Troponin I (0-0.045) ng/ml Total Protein (6.4-8.2) gm/dl Albumin (3.4-5.0) gm/dl Globulin (2.5-4.0) gm/dl Albumin/Globulin Ratio (0.9-2) TSH (0.300-4.500) uIu/ml Urine Color Urine Appearance (Clear) Urine pH (4.5-7.5) Ur Specific [place] (1.000-1.030) Urine Protein (Negative) Urine Glucose (UA) (Negative) Urine Ketones (Negative) Urine Blood (Negative) Urine Nitrite (Negative) Urine Bilirubin (Negative) Urine Urobilinogen (Negative) Ur Leukocyte Esterase (Negative) Urine WBC (Auto) (0-5) /hpf Urine RBC (Auto) (0-4) /hpf U Hyaline Cast (Auto) (0-5) /lpf U Epithel Cells (Auto) (0-5) /lpf Urine Bacteria (Auto) (Negative) PG Care Time/CCT Total # of Minutes Spent Total Time Spent with Patient: Total time spent is greater than 50% in coordination of care (as documented) at patient's floor/unit and/or counseling patient:
[2019-05-02] MEDS: BENZONATATE 100 MG CAPSULE PO SCH (21:10)
[2019-05-02] MEDS: SENNA 8.6 MG TAB PO SCH (21:10)
[2019-05-02] MEDS: GABAPENTIN 300 MG CAP PO SCH (21:10)
[2019-05-02] MEDS: IBUPROFEN 200 MG TAB PO SCH (21:11)
[2019-05-03] MEDS: LEVOTHYROXINE SODIUM 175 MCG TABLET PO SCH (05:47)
[2019-05-03] MEDS: HEPARIN SOD 5,000 UNIT/0.5 ML VIAL SQ SCH ×3 (05:47→21:31)
[2019-05-03 06:23] LABS: Creatinine Clr Calc Pharmacy 49.5 ml/min; Est GFR (African American) 62.8; Est GFR (Non-African American) 54.2
[2019-05-03] MEDS: cephALEXin 500 MG CAP PO SCH ×2 (08:17→21:35)
[2019-05-03] MEDS: BENZONATATE 100 MG CAPSULE PO SCH ×3 (08:17→21:34)
[2019-05-03] MEDS: FUROSEMIDE 40 MG TAB PO SCH (08:17)
[2019-05-03] MEDS: lisinopriL 5 MG TAB PO SCH (08:18)
[2019-05-03] MEDS: METOPROLOL SUCC 50MG EXT REL TAB PO SCH (08:18)
[2019-05-03] MEDS: SERTRALINE HCL 50 MG TABLET PO SCH (08:19)
[2019-05-03 09:14] LABS: BUN Creatinine Ratio 23.2 (10-20); Calcium 8.3 mg/dl (8.5-10.1); Creatinine Clr Calc Pharmacy 48.5 ml/min; Est GFR (African American) 61.2; Est GFR (Non-African American) 52.8; Potassium 3.8 mmol/L (3.5-5.1)
[2019-05-03 09:18] LABS: Hematocrit (blood only) 28.7 % (37-47); Hemoglobin 9.1 g/dL (12.0-16.0); Mean Corpuscular Hemoglobin 31.6 pg (25-34); Mean Corpuscular Hgb Conc 31.7 g/dL (32-36); Mean Corpuscular Volume 99.7 fL (80-100); Mean Platelet Volume 8.7 fL (7.4-10.4); Platelet Count 166 K/uL (130-400); RDW Coefficient of Variation 13.1 % (11.5-14.5); RDW Standard Deviation 47.8 fL (36.4-46.3); Red Blood Count 2.88 M/uL (4.2-5.4); White Blood Count 6.03 K/uL (4.8-10.8)
--- NOTE | 2019-05-03 13:13 | Hospitalist Progress Note ---
Date of Service May 03, 2019 Assessment & Plan (1) Lymphedema: 88 y/o F Hx depression, morbid obesity, hypothyroidism, HTN, lymphedema with chronic ulcers, urinary retention with chronic Rivera. Presents to the hospital by way of family who state she is exhibiting progressive difficulty w ith ambulation and transferring. 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 The family would like her to be placed in rehab therefore, if not long-term care. She visits a wound care clinic weekly for chronic LE ulcers. * Chronic * Use wraps, elevation, lasix 40mg * Wound RN * PT/OT * CM -- will likely need placement at discharge (2) Ambulatory dysfunction: * PT/OT * CM -- patient will likely need placement for acute rehab/SNF placement (3) Stage II pressure ulcer of right heel: * to RIGHT heel * Continue Keflex * Wound Care * Will need follow up with wound clinic at discharge (4) Arthralgia of multiple sites, bilateral: * Continue home gabapentin 300mg QHS (5) Depression: * Continue home sertraline (6) Hypothyroidism: * Continue home levothyroxine 175mcg * Last TSH 0.479 (7) Hypertension: * Stable, currently 130/68 * Continue home metoprolol 50mg, lisinopril 5mg (8) Urinary retention: * Chronic Rivera * Changed Q3 weeks by home nursing * Last changed 2 weeks ago -- will change during this admission, prior to discharge * Continue oxybutynin * U/A with leuk esterase and RBCs but no WBCs or bacteria. Could get a culture if patient spikes a fever again but at this point the brief elevated temperature was probably not reflecting a febrile illness (9) Cough: * Non productive -- New over past 2 days -- will give tessalon pearls * CXR negative for acute process * O2 sat has been >92%, however most recent check with O2 sat 90% on Room Air this afternoon * Encourage deep breathing. * Flu negative * as discussed above, I doubt her briefly elevated temperature was valid, but if she spikes a fever again would re-image (10) Anemia: Baseline hgb 10 -11, today 9.1 Repeat cbc am Check iron studies, b12, folate No s/s of bleeding (11) DVT prophylaxis: * Heparin SQ while inpatient Dispo: CM following, PT/OT pending with likely discharge to [facility] Subjective Ms. Hernandez reports a dry cough that causes her to be incontinent. She denies any sputum production or sob, sore throat or nasal congestion or aches or chills. She had a temp of 38.1 overnight but recheck an hour later showed normal temperature so not sure this is accurate. I don't see that she had any Tylenol to bring her temperature down. ROS Constitutional: no chills, aches, sweats or fever Respiratory: no sob, sputum, or wheezing Cardiac: no chest pain, palpitations, edema, orthopnea or lightheadedness GI: no abdominal pain, nausea, vomiting, diarrhea or constipation : no dysuria or hesitancy Extremities: no joint pain or weakness Skin: no rash All other systems reviewed and negative Physical Exam Physical Exam: General: no distress Eyes: normal inspection, PERLL Respiratory: chest non tender, clear to auscultation, normal breath sounds, no respiratory distress, no accessory muscle use Cardiac: regular rate and rhythm, no rub or gallop, no murmur, no edema, no jvd GI/: active bowel sounds, no abd pain or tenderness, soft, non distended Extremities: normal range of motion, normal strength, non tender Neuro/Psych: alert and oriented x 3, normal mood and affect Skin: normal color, dry Results & Data Vital Signs (Past 12 Hours) Vital Signs Temp Pulse Resp BP Pulse Ox 05/03/19 07:22 36.7 C 67 18 110/64 93 PG Care Time/CCT Total # of Minutes Spent Total Time Spent with Patient: Total time spent is greater than 50% in coordination of care (as documented) at patient's floor/unit and/or counseling patient:
[2019-05-03] MEDS: GABAPENTIN 300 MG CAP PO SCH (21:31)
[2019-05-03] MEDS: IBUPROFEN 200 MG TAB PO SCH (21:34)
[2019-05-03] MEDS: SENNA 8.6 MG TAB PO SCH (22:00)
[2019-05-04] MEDS: HEPARIN SOD 5,000 UNIT/0.5 ML VIAL SQ SCH ×3 (06:04→20:45)
[2019-05-04] MEDS: LEVOTHYROXINE SODIUM 175 MCG TABLET PO SCH (06:04)
[2019-05-04 07:00] LABS: Hematocrit (blood only) 28.8 % (37-47); Hemoglobin 9.4 g/dL (12.0-16.0); Mean Corpuscular Hemoglobin 32.1 pg (25-34); Mean Corpuscular Hgb Conc 32.6 g/dL (32-36); Mean Corpuscular Volume 98.3 fL (80-100); Mean Platelet Volume 8.8 fL (7.4-10.4); Platelet Count 153 K/uL (130-400); RDW Coefficient of Variation 13.1 % (11.5-14.5); RDW Standard Deviation 46.7 fL (36.4-46.3); Red Blood Count 2.93 M/uL (4.2-5.4); White Blood Count 3.84 K/uL (4.8-10.8)
[2019-05-04 07:29] LABS: Albumin Level 2.2 gm/dl (3.4-5.0); BUN Creatinine Ratio 24.9 (10-20); Calcium 8.8 mg/dl (8.5-10.1); Creatinine Clr Calc Pharmacy 49.5 ml/min; Est GFR (African American) 62.8; Est GFR (Non-African American) 54.2; Potassium 3.7 mmol/L (3.5-5.1)
[2019-05-04 07:32] LABS: Albumin Globulin Ratio 0.6 (0.9-2); Bilirubin,Total 0.3 mg/dl (0.2-1); Ferritin 208.3 ng/ml (8-388); Globulin 3.7 gm/dl (2.5-4.0); Total Protein 5.9 gm/dl (6.4-8.2)
[2019-05-04] MEDS: cephALEXin 500 MG CAP PO SCH (08:08)
[2019-05-04] MEDS: METOPROLOL SUCC 50MG EXT REL TAB PO SCH (08:08)
[2019-05-04] MEDS: lisinopriL 5 MG TAB PO SCH (08:08)
[2019-05-04] MEDS: SERTRALINE HCL 50 MG TABLET PO SCH (08:08)
[2019-05-04] MEDS: FUROSEMIDE 40 MG TAB PO SCH (08:08)
[2019-05-04 08:32] LABS: Folate (Folic Acid) 16.47 ng/ml (>5.38)
[2019-05-04] MEDS: CYANOCOBALAMIN 500 MCG TABLET (VITAMIN B-12) PO SCH (10:45)
[2019-05-04] MEDS: BENZONATATE 100 MG CAPSULE PO SCH ×3 (10:45→20:46)
--- NOTE | 2019-05-04 14:56 | XRay Report ---
XR chest 2V PA/lateral HISTORY: Right lower lobe rales on exam; eval pneumonia COMPARISON: Chest 05/01/2019. FINDINGS: Blunting of the bilateral posterior costophrenic sulci suggestive of trace pleural effusion s. Mild diffuse interstitial thickening which is likely chronic. Posterior fusion hardware within the lower thoracic and upper lumbar spine is again noted. No pneumothorax. No new focal lung consolidati ons to suggest pneumonia. No evidence for pulmonary edema. The heart is top normal in size. IMPRESSION: 1. Trace bilateral pleural effusions. 2. Mild diffuse interstitial thickening which is likely chronic. ACT 112: Negative or not required by law. Electronically signed by: Nixon Regan M.D. 05/04/2019 2:55 PM
--- NOTE | 2019-05-04 14:58 | XRay Report ---
XR foot RT 2V CLINICAL HISTORY: right heel/achilles pain COMPARISON: None FINDINGS: Densities projecting over the right foot are on the patient. There is osteopenia. Tarsomet atarsal joints are intact. 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 Moderate posterior and calcanea l spurring is noted. There is no fracture or suspicious lesion within the right foot. There is no luly dence for osteomyelitis. Right foot soft tissue swelling is present. There is moderate vascular calci fication. IMPRESSION: 1. No acute fracture or dislocation within the right foot. 2. Moderate posterior and plantar calcaneal spurring. 3. Moderate osteoarthritis within the right midfoot. ACT 112: Negative or not required by law. Electronically signed by: Dougie Pruitt M.D. 05/04/2019 2:57 PM
--- NOTE | 2019-05-04 16:26 | CT Scan Report ---
CT SCAN OF THE CHEST WITHOUT IV CONTRAST CLINICAL HISTORY: Cough. Bilateral rales on physical examination. COMPARISON STUDY: Chest x-ray dated 05/04/2019. Chest CT dated 08/19/2011. TECHNIQUE: CT scan of the thorax was performed from the thoracic inlet to the upper abdomen. Images are reviewed in the axial, sagittal, and coronal planes. IV contrast was not administered for this ex amination as per the referring clinician. A dose lowering technique was utilized adhering to the clara nciyoli of [place]. The examination is degraded by motion artifact, as well as by streak artifact from the arms which could not be elevated above the chest. CT DOSE: 787.65 mGycm FINDINGS: Thyroid: Imaged portions of the thyroid gland are normal in size and attenuation. Thoracic aorta: There is atherosclerotic calcification of the thoracic aorta, with is normal in calib er and demonstrates standard 3-vessel arch anatomy. Heart: The heart is mildly enlarged and without pericardial effusion. The coronary arteries are dense ly calcified. The pulmonary trunk is normal in caliber. Lungs and pleural spaces: Evaluation of the lung parenchyma is degraded by motion artifact. There are small pleural effusions with bibasilar consolidation. Diffuse subpleural reticulation is noted throu ghout both lungs with a lower lobe predominance. The trachea and central airways are clear. Mediastinum: There are numerous subcentimeter mediastinal lymph nodes. Margarita: Not well assessed without IV contrast. Axillae: There is no axillary lymphadenopathy. Upper abdomen: Partially visualized upper abdominal viscera is within normal limits. Skeletal structures: The skeletal structures are osteopenic. 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 Fusion hardware is seen at the thoracolumbar junction. No lytic or blastic bony lesions are seen. IMPRESSION: 1. Streak and motion compromised examination. 2. There are small pleural effusions with bibasilar consolidation. Correlate clinically for evidence of pneumonia/aspiration pneumonitis. Radiographic follow-up to resolution is recommended. 3. Cardiomegaly. 4. Additional findings as above. ACT 112: Negative or not required by law. Electronically signed by: Rodrigo Portillo M.D. 05/04/2019 4:24 PM
[2019-05-04] MEDS ORDERED: FUROSEMIDE 40 MG TAB PO ONE (16:49)
[2019-05-04] MEDS: LACTOBACILLUS ACIDOPHILUS (FLORANEX) TAB PO SCH (17:46)
[2019-05-04] MEDS: AMOXICILLIN/CLAVULANATE 875 MG TAB PO SCH (17:46)
--- NOTE | 2019-05-04 20:28 | Hospitalist Progress Note ---
Date of Service May 04, 2019 Assessment & Plan (1) Pneumonia: patient with cough x 1-2 weeks. low-grade fever documented on 05/02/19. cxr with "interstitial thickening" but no obvious pneumonia. I elected to obtain CT chest w/o contrast to get more information. This demonstrated dense bibasilar infiltrates in subpleural location. Suspect that this is indeed pneumonia. Aspiration? community-acquired? will start augmentin BID; treat 7-10 days. ask speech therapy to see tomorrow to r/o dysphagia/aspiration. family was updated at bedside w/ respect to CT findings. I think pneumonia explains her decline over the last week or so. (2) Vitamin B12 deficiency: probably explains some of her leukopenia and anemia. start B12 supplement 1000mcg daily. plan 12-months of Rx. (3) Achilles tendon pain: RIGHT. Could have tendonitis. Small ulceration present could be contributing. x-rays obtained - no calcaneal fracture seen. (4) Venous stasis ulcer: chronic. RLE. continue wraps as recommended by wound care nurse. (5) Lymphedema: chronic. cont lasix 40mg daily. (6) Ambulatory dysfunction: B12 deficiency can contribute. Pneumonia/infection leading to weakness can contribute. Cont PT/OT. needs placement at SNF. (7) Stage II pressure ulcer of right heel: recently debrided in the wound care clinic just before [place]. Wound cx showed MSSA. was on keflex for such. keflex stopped since we are placing on augmentin for pneumonia. Augmentin will cover MSSA. appreciate wound care assistance. (8) Arthralgia of multiple sites, bilateral: Continue home gabapentin 300mg QHS (9) Depression: cont zoloft (10) Hypothyroidism: Continue home levothyroxine 175mcg daily Last TSH 0.479 on 05/01/19 (11) Hypertension: Controlled on home metoprolol xl 50mg and lisinopril 5mg daily (12) Urinary retention: Continue Chronic Rivera Last changed 2 weeks ago Continue oxybutynin (13) Anemia: Iron studies acceptable Folate acceptable B12 level - deficiency; start replacement (14) DVT prophylaxis: heparin TID spoke with case management; likely ready for d/c to SNF on 05/05/2019 family updated at bedside 05/04/2019 Subjective patient sitting in chair during bedside rounds. she is very hard of hearing and thus it is difficult to communicate with her. [id number] she was able to tell me she doesn't like the food, that she has mild right heel pain (started today?), and that she has a cough. her room-mate told me the cough was present last night as well. when asked how long the cough had been present she reported "a couple of weeks." on a 2nd visit to her room later in the day the patient's 2 sons were present. they stated her cough got much worse sometime in the last week. she had several sick contacts in her family over the holiday. they have not noted any overt aspiration or difficulty swallowing. Review of Systems Constitutional: + fatigue; no chills and no anorexia Respiratory: + cough; no dyspnea, no hemoptysis and no wheezing Cardiovascular: no chest pain Gastrointestinal: no abdominal pain Physical Exam Constitutional: + obese; no acute distress hard of hearing coughing ENMT: external ear and nose normal, oropharynx normal Respiratory: no respiratory distress and does not use accessory muscles Auscultation: + rales (dense - right base; minimal rales left base); no wheezes Cardiovascular: Rate/Rhythm: regular rate and regular rhythm Heart Sounds: normal S1 and normal S2; no murmur Vessels: posterior tibial pulses present and dorsalis pedis pulses present; no JVD Extremities: + edema (lymphedema b/l legs) Gastrointestinal (Abdomen): normal bowel sounds, soft, nontender, no hepatosplenomegaly Musculoskeletal: right achilles - tender to palpation; tenderness extends to the calcaneous; mild pain with passive movement of achilles/ankle Skin: right leg wrapped in large dressing covering most of the tib-fib / ford; venous stasis changes b/l; peeling skin most of both legs and feet; right achilles region - small ulcer, dime-sized Psychiatric: Orientation: alert, oriented to person and oriented to place Results & Data Vital Signs (Past 12 Hours) Vital Signs Temp Pulse Resp BP Pulse Ox 05/04/19 14:41 36.7 C 62 18 159/77 H 96 Laboratory Results Laboratory Results - last 24 hr 05/04/19 05/04/19 05/04/19 06:35 06:35 06:35 WBC 3.84 L RBC 2.93 L Hgb 9.4 L Hct 28.8 L MCV 98.3 MCH 32.1 MCHC 32.6 RDW Std Deviation 46.7 H RDW Coeff of Pradeep 13.1 Plt Count 153 MPV 8.8 Sodium 140 Potassium 3.7 Chloride 106 Carbon Dioxide 30 Anion Gap 4.0 BUN 23 H Creatinine 0.94 Est Cr Clr Drug Dosing 49.5 Est GFR ( Amer) 62.8 Est GFR (Non-Af Amer) 54.2 BUN/Creatinine Ratio 24.9 H Glucose 93 Calcium 8.8 Iron 41 TIBC 153 L Transferrin 125 L Ferritin 208.3 Total Bilirubin 0.3 AST 14 L ALT 12 Alkaline Phosphatase 95 Total Protein 5.9 L Albumin 2.2 L Globulin 3.7 Albumin/Globulin Ratio 0.6 L Vitamin B12 258 Folate 16.47 PG Care Time/CCT Total # of Minutes Spent Total Time Spent with Patient: Total time spent is greater than 50% in coordination of care (as documented) at patient's floor/unit and/or counseling patient: (1) Venous stasis ulcer Laterality: right Non-pressure ulcer stage: limited to breakdown of skin Varicose vein presence: without varicose veins Venous stasis ulcer site: other part of lower leg Qualified Code(s): I87.2 - Venous insufficiency (chronic) (peripheral); L97.811 - Non-pressure chronic ulcer of other part of right lower leg limited to breakdown of skin (2) Pneumonia Pneumonia type: due to unspecified organism Laterality: bilateral Lung location: lower lobe of lung Qualified Code(s): J18.9 - Pneumonia, unspecified organism
[2019-05-04] MEDS: SENNA 8.6 MG TAB PO SCH (20:46)
[2019-05-04] MEDS: GABAPENTIN 300 MG CAP PO SCH (20:46)
[2019-05-04] MEDS: IBUPROFEN 200 MG TAB PO SCH (20:48)
[2019-05-05] MEDS: LEVOTHYROXINE SODIUM 175 MCG TABLET PO SCH (06:20)
[2019-05-05] MEDS: HEPARIN SOD 5,000 UNIT/0.5 ML VIAL SQ SCH ×2 (06:20→13:56)
[2019-05-05 06:23] LABS: BUN Creatinine Ratio 29.4 (10-20); Calcium 8.9 mg/dl (8.5-10.1); Creatinine Clr Calc Pharmacy 45.6 ml/min; Est GFR (African American) 56.9; Est GFR (Non-African American) 49.1
[2019-05-05] MEDS: LACTOBACILLUS ACIDOPHILUS (FLORANEX) TAB PO SCH ×3 (07:53→17:53)
[2019-05-05] MEDS: SERTRALINE HCL 50 MG TABLET PO SCH (07:53)
[2019-05-05] MEDS: AMOXICILLIN/CLAVULANATE 875 MG TAB PO SCH ×2 (07:53→17:53)
[2019-05-05] MEDS: FUROSEMIDE 40 MG TAB PO SCH (07:54)
[2019-05-05] MEDS: BENZONATATE 100 MG CAPSULE PO SCH ×2 (07:54→13:56)
[2019-05-05] MEDS: CYANOCOBALAMIN 500 MCG TABLET (VITAMIN B-12) PO SCH (07:54)
[2019-05-05] MEDS: METOPROLOL SUCC 50MG EXT REL TAB PO SCH (07:54)
[2019-05-05] MEDS: lisinopriL 5 MG TAB PO SCH (07:55)
--- NOTE | 2019-05-05 14:38 | Fluoroscopy Report ---
FL video swallow HISTORY: Aspiration assess for aspiration, coughing with liquids TECHNIQUE: Video fluoroscopic evaluation of swallowing was performed in the AP and lateral projection s by the speech pathology staff. The patient is fed nectar-thick and thin liquid barium, a barium coa kaylen wafer, and barium pudding. FLUOROSCOPY TIME: 2.7 minutes NUMBER OF FLUOROSCOPIC IMAGES: 6 5 COMPARISON STUDY: None. FINDINGS: The patient initiates swallowing function well. There is moderate vallecular pooling. There is a small amount of aspiration with thin liquids. There is no significant cough reflex. Aspiration identified with thicker liquids. IMPRESSION: 1. 1. Mild to moderate aspiration with thin liquids. 2. No significant cough reflex. 3. Moderate vallecular pooling. 4. Please see the speech pathologist report for detailed findings and recommendations. ACT 112: Negative or not required by law. The above report was generated using voice recognition software. It may contain grammatical, syntax or spelling errors. Electronically signed by: Gabriel Marquez M.D. 05/05/2019 2:36 PM
--- NOTE | 2019-05-05 14:58 | Discharge Summary ---
Date of Service date of admission - May 01, 2019 date of discharge - May 05, 2019 Admission HPI Per Admitting Provider 88 y/o F Hx depression, morbid obesity, hypothyroidism, HTN, lymphedema with chronic ulcers, urinary retention with chronic Rivera. Presents to the hospital by way of family who state she is exhibiting progressive difficulty with ambulation and transferring. She has a sterile tech from 11a to 7p daily but they have been unable to assist her without help over the past few days. The family would like her to be placed in rehab therefore, if not long-term care. The pt has no complaints. She is eing treated for a small ulcer on the back of her R heal with antibiotics which were provided based on culture results. She visits a wound care clinic weekly for chronic LE ulcers. PMH: 1) Morbid obesity 2) Hypothyroidism 3) Chronic lymphedema with stasis ulcers 4) Depression 5) Lumbar spinal stenosis 6) HTN 7) Spastic bladder 8) Chronic urinary retention - Rivera 9) Basal skin CA Principal Diagnosis bilateral lower lobe pneumonia - likely due to aspiration Discharge Exam Constitutional + obese; no acute distress ENMT external ear and nose normal, oropharynx normal Respiratory no respiratory distress and does not use accessory muscles Auscultation: + rales (dense - right base; minimal rales left base); no wheezes Cardiovascular Rate/Rhythm: regular rate and regular rhythm Heart Sounds: normal S1 and normal S2; no murmur Vessels: posterior tibial pulses present and dorsalis pedis pulses present; no JVD Extremities: + edema (lymphedema b/l legs) Gastrointestinal (Abdomen) normal bowel sounds, soft, nontender, no hepatosplenomegaly Skin scattered superficial ulcerations on shins, mainly right leg; tiny ulcer on achilles tendon region near insertion of calcaneous Psychiatric Orientation: alert, oriented to person and oriented to place Discharge Data Allergies Allergy/AdvReac Type Severity Reaction Status Date / Time No Known Allergies Allergy Unknown Verified 04/24/19 13:39 Consultations speech/PT/OT wound care nurse Ordered Studies 1. CT head - FINDINGS: No acute intracranial hemorrhage, midline shift or mass effect is present. The ventricular system is unremarkable. The basilar cisterns are patent. No extra-axial collections are present. There are no findings to suggest acute dural sinus thrombosis or acute territorial infarct. No significant calvarial abnormalities are present. Visualized portions of the sinuses and mastoid air cells are clear. White matter hypodensity suggests small vessel disease. 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 This is unchanged. There may be an old lacunar infarct within the left thalamus. IMPRESSION: No acute intracranial findings. 2. CT chest - IMPRESSION: 1. Streak and motion compromised examination. 2. There are small pleural effusions with bibasilar consolidation. Correlate clinically for evidence of pneumonia/aspiration pneumonitis. Radiographic follow-up to resolution is recommended. 3. Cardiomegaly. 3. Video swallow evaluation - IMPRESSION: 1. Mild to moderate aspiration with thin liquids. 2. No significant cough reflex. 3. Moderate vallecular pooling. Hospital Course (1) Pneumonia: patient with cough x 1-2 weeks pre-admission per family. low-grade fever documented on 05/02/19. cxr with "interstitial thickening" but no obvious pneumonia. I elected to obtain CT chest w/o contrast to get more information. This demonstrated dense bibasilar infiltrates in subpleural location. Suspect that this is indeed pneumonia. Aspiration vs community-acquired; aspiration most likely. Started augmentin BID; treat 7-10 days. Speech therapy eval completed; bedside swallow and video swallow confirmed aspiration with thin liquids. Diet changed to soft bite sized and NECTAR THICK liquids. I suspect that the pneumonia was the cause of her decline before admission. She should continue with speech therapy upon admission to long-term. (2) Vitamin B12 deficiency: Probably explains some of her leukopenia and anemia. B12 level was 258. Recommend B12 supplement 1000mcg daily for 12-months of Rx. (3) Achilles tendon pain: RIGHT. Could have tendonitis. Small ulceration present could be contributing to pain as well. x-rays obtained - no calcaneal fracture seen. (4) Venous stasis ulcer: chronic. RLE. continue wraps as recommended by wound care nurse. (5) Lymphedema: chronic. cont lasix 40mg daily. (6) Ambulatory dysfunction: B12 deficiency can contribute. Pneumonia/infection leading to weakness can contribute. Cont PT/OT. needs placement at SNF for rehab. (7) Stage II pressure ulcer of right heel: recently debrided in the wound care clinic just before [place]. Wound cx showed MSSA. was on keflex for such. keflex stopped since we are placing on augmentin for pneumonia. Augmentin will cover the MSSA. Reeves recommendations during this stay were provided by the wound care nurse. (8) Arthralgia of multiple sites, bilateral: Continue home gabapentin 300mg QHS (9) Depression: cont zoloft (10) Hypothyroidism: Continue home levothyroxine 175mcg daily Last TSH 0.479 on 05/01/19 (11) Hypertension: Controlled on home metoprolol xl 50mg and lisinopril 5mg daily during the hospital stay. (12) Anemia: Iron studies acceptable Folate acceptable B12 level - deficiency present; started replacement as noted above Discharge Hb was 9.4; baseline about 10-11 Total Time Total Time Spent Total Time Spent (In Minutes): 45 Total Time Includes: Examination of the Patient, Discharge Planning, Medication Reconciliation and Communication With Other Providers (speech therapy ) Discharge Plan Discharge Items Patient Disposition: Transfer [facility] Living [facility] Reason For Visit: FAILURE TO THRIVE Discharge Diagnosis: 1. failure to thrive - improved while here 2. bilateral lower lobe pneumonia - possibly due to aspiration 3. chronic venous stasis ulcers of the right ford 4. right heel wound Activity: Resume your previous activity Non-emergency contact: Primary Care Provider Call non-emergency contact if: you have any medication questions, your symptoms worsen and you have a fever Follow-up/Referrals: Addie Covarrubias MD [Primary Care Provider] - Natanael Champagne, [Physician] - (see Dr Champagne or any provider at the [facility] 1-2 weeks for RLE wounds) Diet: Regular Diet Texture: Dental soft (bite-sized) Liquid Consistency: Mars thick Addtl Attending Provider Instructions: 1. PT, OT services please; dx - ambulatory dysfunction. 2. speech therapy services; dx - dysphagia (had video swallow showing aspiration of thins on 05/05/19). 3. repeat CBC, BMP, mag level in 5-7 days for stability; results to medical device sales. 4. f/u Wound Care center as noted in f/u section above. 5. continue dressing changes to all wounds on lower extremities as directed by wound care team. 6. see speech therapy discharge instructions for aspiration precautions. Pending Studies at Discharge: No Stand-Alone Forms: [employer] Skilled Items Patient informed of condition?: Yes DNR: No Discharge Level of Care: Skilled Communicable Disease: No Discharge Prognosis: Stable Lines: None Urinary Catheter: Yes (needs to be replaced in 10 days, then every 30 days thereafter. ) Medications and DC Order Prescriptions: New amoxicillin-pot clavulanate [Augmentin] 875-125 mg Tablet 1 tab PO BIDM 7 Days Qty: 14 RF: 0 cyanocobalamin (vitamin B-12) 500 mcg Tablet 1,000 mcg PO QAM Qty: 90 RF: 3 Lactobacillus acidoph-L.bulgar [Floranex] 1 million cell Tablet 4 tab PO TIDM 10 Days Qty: 120 RF: 0 hydrocodone-acetaminophen 2.5-325 mg tablet 1 tab PO Q8H PRN (Reason: pain) Qty: 10 RF: 0 Continued lisinopril 5 mg tablet 5 mg PO DAILY RF: 0 sennosides [Senokot] 8.6 mg tablet 17.2 mg PO HS RF: 0 omeprazole 20 mg capsule,delayed release(DR/EC) See Rx Instructions .ROUTE .COMPLEX Qty: 30 RF: 11 Metamucil [facility] Fiber 3.4 gram/5.8 gram powder 3 gm PO DAILY PRN (Reason: Constipation) RF: 0 furosemide 40 mg tablet 40 mg PO DAILY Qty: 30 RF: 5 levothyroxine 175 mcg tablet 175 mcg PO DAILY Qty: 30 RF: 5 metoprolol succinate 50 mg tablet extended release 24 hr 50 mg PO DAILY Qty: 30 RF: 5 oxybutynin chloride 5 mg tablet 5 mg PO TID PRN (Reason: bladder spasms) Qty: 90 RF: 5 sertraline 50 mg tablet 50 mg PO DAILY Qty: 30 RF: 5 nystatin 100,000 unit/gram powder See Rx Instructions .ROUTE .COMPLEX PRN (Reason: rash) RF: 0 gabapentin [Neurontin] 300 mg capsule 300 mg PO HS RF: 0 diclofenac sodium [Voltaren] 1 % gel 1 % topical QID PRN (Reason: Pain) RF: 0 Discontinued cephalexin [Keflex] 500 mg capsule 500 mg PO qid Qty: 40 RF: 1 ibuprofen 200 mg capsule 400 mg PO HS RF: 0 Discharge Orders: Discharge Order (Routine); Ordered 05/05/19 Ordered By: Deven Jurado Admission Data Admit Date/Time: 05/02/19 18:07 Attending Provider: Deven Jurado Admit Provider: Trevon Trinidad Primary Care Provider: Addie Covarrubias Other Providers: Trevon Trinidad ; Remington,Katja ; [facility] Other Interventions: Discharge Summary Assessment (RN) Last Done: 05/05/19 15:02 DC Date/Time DO NOT enter until pt leaves facility: 05/05/19 18:15
== END 2019-05-05 18:15 | DRG 178 ==
LOC: 4W 16:01 → ED 16:01 → SUATTDRO 19:27 → 4W 20:06 → SUATTDRO 05-02 18:07 → 4W 05-03 09:36